=== PATIENT | female | born 1940 | race Caucasian/White ===

== ENCOUNTER → 2018-04-14 10:28 | Outpatient (CLI) | payer MEDICARE, SELFPAY ==
--- NOTE | 2018-04-14 10:30 | BI_ITS ---
MAMMOGRAPHY - BILATERAL SCREENING REASON FOR EXAM: Female, 77 years old. Routine annual screening examination. PERTINENT HISTORY: Non-contributory. TECHNIQUE: Digital bilateral breast rosette (3D mammographic acquisition) in the CC and MLO projections. 2-D mediolateral oblique (MLO) and craniocaudad (CC) views of both breasts were obtained. CAD: Full Field Digital Mammography with Computer Added Detection was performed. COMPARISON: Comparison is made with prior study dated March 30, 2017 and March 26, 2016. FINDINGS: Breast Composition: There are scattered areas of fibroglandular density. There are no dominant masses or suspicious calcifications. No other significant abnormalities are identified. There has been no significant change since the prior study. BI/SCREENING MAMM (CAD), BILAT IMPRESSION: Stable bilateral screening mammogram. Yearly follow-up mammogram recommended. (A) ASSESSMENT CATEGORY: BIRADS Category 1: Negative. A letter regarding these results will be sent to the patient by the facility within 30 days. Approximately 10% of breast cancers are not detected by mammography. A normal mammogram should not delay biopsy of a clinically suspicious abnormality. [id number] Electronically Signed: Osiel Meyer MD at 12:32 EDT Tel [phone], Service support ,
== END ==
PROVIDERS: Family Provider Family Medicine; PCP Family Medicine; Referring Provider Family Medicine; Visit Provider Family Medicine
DX: Z12.31 Encounter for screening mammogram for malignant neoplasm of breast (principal)
CPT/HCPCS: 77063; 77067

== ENCOUNTER → 2018-05-19 06:58 | Outpatient (CLI) | payer MEDICARE, SELFPAY ==
[2018-05-19 08:34] LABS: Vitamin B12 799 pg/mL (211-911)
[2018-05-19 08:36] LABS: Cholesterol 204 mg/dL (200); High Density Lipoprotein 47 mg/dL; T4 Free Direct 1.08 ng/dL (0.76-1.46); Thyroid Stim Hormone (TSH) 2.32 uIU/mL (0.358-3.74); Triglycerides 131 mg/dL; Very Low Density Lipoprotein 26 mg/dL (5-40)
== END ==
PROVIDERS: Family Provider Family Medicine; PCP Family Medicine; Referring Provider Family Medicine; Visit Provider Family Medicine
DX: E78.5 Hyperlipidemia, unspecified (principal); R53.82 Chronic fatigue, unspecified
CPT/HCPCS: 36415; 80061; 82607; 84439; 84443

== ENCOUNTER → 2018-09-16 09:17 | Outpatient (CLI) | payer MEDICARE, SELFPAY | PROVIDERS: Family Provider Family Medicine; PCP Family Medicine; Referring Provider Family Medicine; Visit Provider Family Medicine | DX: R19.7 Diarrhea, unspecified (principal) | CPT/HCPCS: 83630 ==

== ENCOUNTER → 2018-09-29 10:32 | Outpatient (CLI) | payer MEDICARE, SELFPAY ==
[2018-09-29 12:38] LABS: Absolute Lymphocyte Count 1.12 X10^3/ul (0.83-4.51); Absolute Neutrophil Count 3.9 X10^3/uL (2.0-7.7); Basophil# 0.02 X10^3/uL; Basophil% 0.3 % (0-1); Eosinophil# 0.07 X10^3/uL; Eosinophils% 1.2 % (0-5); Hematocrit 45.3 % (37-47); Lymphocyte # 1.12 X10^3/ul (4.0); Lymphocyte % 18.8 % (19-41); Mean Corp Hgb Conc 33.1 g/gl (32-36); Mean Corpuscular Hgb 30.8 pg (27.0-32.0); Mean Platelet Vol. 10.4 fl (6.2-12.0); Monocyte% 13.4 % (0-10); Neutrophil # 3.93 X10^3/uL (2.7-7.7); Platelet Count 260 K/mm3 (150-450); RBC Distribution Width CV 13.8 % (11.6-14.6); RBC Distribution Width SD 45.7 fl (35.1-43.9); Red Blood Count 4.87 M/mm3 (4.2-5.4)
[2018-09-29 12:42] LABS: POSITIVE COUNT NO; POSITIVE DIFFERENTIAL NO; POSITIVE MORPHOLOGY NO
[2018-09-29 12:55] LABS: Erythrocyte Sedimentation Rate 17 mm/hr (0-30)
[2018-09-29 12:58] LABS: CRP < 2.90 mg/L (0.0-3.0)
== END ==
PROVIDERS: Family Provider Family Medicine; PCP Family Medicine; Visit Provider Family Medicine
DX: R19.7 Diarrhea, unspecified (principal)
CPT/HCPCS: 36415; 85025; 85652; 86140

== ENCOUNTER → 2018-11-07 | Outpatient (CLI) | payer MEDICARE, SELFPAY ==
--- NOTE | 2018-11-07 08:22 | BD_ITS ---
STUDY: DUAL ENERGY X-RAY ABSORPTIOMETRY / DXA REASON FOR EXAM: Female, 78 years old. The patient is postmenopausal. Loss of height. TECHNIQUE: Bone Mineral Density (BMD) measurements of lumbar spine and left hip were obtained. COMPARISON: None. FINDINGS: Lumbar Spine (L1-L4): g/cm2 (0.960) / T-score (-2.0) / Z-score (-0.2) Findings are suggestive of osteopenia with a moderate fracture risk. Left Femur Total: g/cm2 (0.779) / T-score (-1.8) / Z-score (0.0) Left Femoral Neck: g/cm2 (0.896) / T-score (-1.0) / Z-score (1.0) BD/Dexa Bone Density Study IMPRESSION: The patient is considered osteopenic as outlined below according to World Jethro Organization (WHO) criteria with a moderate fracture risk. Reference Information: The T-score is the number of standard deviations above or below the standard which is normal for young adults at their peak bone mineral density. The World Health Organization (WHO) interprets the T-scores as follows: Above -1 Normal bone density Between -1 and -2.5 Osteopenia Equal to / or below -2.5 Osteoporosis As a practical clinical guideline, osteopenia may be graded as follows: Mild -1 through -1.5 Moderate -1.6 through -2.0 Severe -2.1 through -2.4 The Z-score is the number of standard deviations above or below age-matched controls. A Z-score of less than -1.5 would be considered abnormal. References: 1. NIH Osteoporosis and Related Bone Diseases http://www.osteo.org 2. International Society for Clinical Densitometry http://www.iscd.org 3. National Osteoporosis Foundation http://www.nof.org Electronically Signed: Osiel Meyer, at 9:36 EDT , Service support ,
== END | disposition home or self-care (01) ==
PROVIDERS: Family Provider Family Medicine; PCP Family Medicine; Referring Provider Family Medicine; Visit Provider Family Medicine
DX: M81.0 Age-related osteoporosis without current pathological fracture (principal); Z13.820 Encounter for screening for osteoporosis
CPT/HCPCS: 77080

== ENCOUNTER → 2018-11-14 | Outpatient (CLI) | payer MEDICARE, SELFPAY ==
[2018-11-14 17:52] LABS: Vitamin D,25 Hydroxy 19.9 ng/mL (29.95-100.01)
== END | disposition home or self-care (01) ==
LOC: BFHLAB 11:11
PROVIDERS: Family Provider Family Medicine; PCP Family Medicine; Visit Provider Family Medicine
DX: M85.80 Other specified disorders of bone density and structure, unspecified site (principal)
CPT/HCPCS: 36415; 82306

== ENCOUNTER 2018-11-29 07:26 | Day surgery (SDC) | payer MEDICARE, SELFPAY ==
[2018-11-16 09:39] VITALS: BMI 24.4
--- NOTE | 2018-11-16 10:01 | HP_ITS ---
Intake Vital Signs 11/16/18 Height 5 ft 5 in 11/16/18 Weight: 147 lb 11/16/18 Body Mass Index (BMI) 24.4 11/16/18 Blood Pressure 209/115 H 11/16/18 Blood Pressure Location Rt brachial 11/16/18 Blood Pressure Position Sitting 11/16/18 Respiratory Rate 18 Intake Visit Reasons: C-Scope Consult Core Carrier Required: No Is patient in pain?: No Allergies No Known Allergies Allergy (Verified 11/16/18 09:39) Medications Atenolol [Tenormin (beta ross)] 50 mg PO BID 08/01/14 [History Confirmed 11/16/18] Atorvastatin Calcium [Lipitor] 20 mg PO QHS 08/01/14 [History Confirmed 11/16/18] Calcium Citrate/Vitamin D3 [Hm Calcium Citrate-Vit D3 Tab] 1 ea PO DAILY 08/01/14 [History Confirmed 11/16/18] Indapamide 1.25 mg PO DAILY 08/01/14 [History Confirmed 11/16/18] Potassium Chloride [K-Dur] 20 meq PO BID 08/01/14 [History Confirmed 11/16/18] Aspirin E.C. [Ecotrin] 325 mg PO BIDCM #60 tab 08/14/14 [Rx Confirmed 11/16/18] turmeric root extract 500 mg capsule 500 mg PO DAILY 11/16/18 [History Confirmed 11/16/18] PFSH Medical History Diarrhea (Acute) High cholesterol (Acute) HTN (hypertension) (Chronic) Surgical History H/O cataract extraction (Acute) H/O right wrist surgery (Acute) Surgical complication involving right eye (Acute) right hip surgery (Acute) Family History Father Cancer Social History Smoking Status: Never smoker alcohol intake: never HPI HPI HPI: RADHA SAUCEDO, is a 78 F who presents to the office today for HPI HPI Surgical H&P: Yes HPI: RADHA SAUCEDO, is a 78 F who presents to the office today for evaluation for diarrhea. Patient states she has had diarrhea for about a month. Patient had been seeing her PCP did have stool cultures which were negative but she did have positive fecal leukocytes. Patient had tried probiotics, and antibiotic patient cannot remember the name however states she had stomach issues with that and she also tried budesonide which initially states that she thought she was better for the 5 days but when she tried more she knows there is no difference. Patient has been on turmeric and she has been taking that for about 5 days and states she has been having normal stools since then. Patient denies any blood in her stools with the diarrhea or with normal bowel movements. She currently does complain of some metallic taste in her mouth which she can also do not eat pizza sauce. Otherwise she denies other symptoms of reflux. Patient states father was diagnosed with stomach cancer at age 74, patient is never had an EGD. Patient denies any abdominal pain or any family history of colon cancer. Her last screening colonoscopy was in 2007 which was negative. ROS General General: No weight change, fatigue, colon cancer or breast cancer Cardio Cardiovascular: No chest pain Gastro Gastrointestinal: No abdominal pain, No nausea or vomiting, No diarrhea, No constipation, No blood in stool, No acid reflux, Yes hemorrhoids, No ulcers, No gallbladder problem, No black,tarry stools Exam Const General: cooperative, comfortable, no acute distress Resp Effort & Inspection: normal respiratory effort Cardio Rate: regular rate GI Inspection: non-distended Palpation: soft, no guarding, nontender Assessment & Plan Problems 1. Diarrhea R19.7 2. Metallic taste R43.8 3. Gastroesophageal reflux disease K21.9 4. FH: stomach cancer Z80.0 Plan I have discussed the above with the patient. I have offered the patient EGD and diagnostic colonoscopy for evaluation of diarrhea with random biopsies as well as EGD due to metallic taste which could be reflux into discussed with patient that tumor could make reflux worse. Family history of stomach cancer -father diagnosed at age 74 stomach cancer. I have explained the risks/benefits of the procedure and described the procedure. I have discussed the risks with the patient, including but not limited to: infection, bleeding, perforation of the GI tract requiring emergency surgery, inability to complete the procedure, injury to any internal organs, complications of anesthesia, etc. - the patient understands and agrees to proceed. I have answered all the patient's questions to the patient's satisfaction and the patient has no further questions. The patient has been given instructions for the colon cleansing preparation. One day of clears, MiraLAX Dulcolax split prep Martha Guerra M.D. Pager: [phone] [facility] [address] [place] [address], [facility], [address] [place], [place] [id number] Office: [phone] Plan Detail Follow Up We will schedule EGD and colonoscopy Coding Level of Care Code Off vis,est,level 3 Diagnoses Diarrhea R19.7 Metallic taste R43.8 Gastroesophageal reflux disease K21.9 FH: stomach cancer Z80.0 11/16/18 1001 <Electronically signed by Martha Guerra MD> Date Martha Guerra MD UPDATE: I have re-examined the patient. There are no clinical changes since date of exam.
[2018-11-29 08:05] VITALS: BP 173/79; PULSE 56; RESP 16; TEMP 36.8; O2SAT 100; BMI 24.1
--- NOTE | 2018-11-29 08:45 | EGD_PTH ---
PATIENT: RADHA SAUCEDO LOC: EN U#:[id number] AGE/SX: 78/F ROOM: RE11/29/[address]: Dr. Martha Guerra MD : 1940 BED: DIS: 11/29/2018 SPEC #: [id number] RECD: 11/29/18 12:25 STATUS: SHANNON MESERET #: [id number] RYAN: 11/29/18 08:[address]: Martha Guerra DEPT: SURGICAL PATHOLOGY RECD BY: Chapo Mckenzie ENTERED: 11/29/18 12:48 SP TYPE: EGD BIOPSY OTHR DR: Dr. Javier Chapin DO Tissues: A - Gastric mucous membrane B - Gastric mucous membrane C - Ileum, NOS D - Ileum, NOS E - Transverse colon F - Descending colon G - Sigmoid colon biopsy H - Rectum, NOS I - Rectum, NOS Procedures: Special Stain Group II Surgery Specimen Level IV Alcian Blue/PAS (control) HEADER OPERATION: Colonoscopy, EGD ([facility] [place]) PRE-OP DIAGNOSIS: Diarrhea TISSUE SUBMITTED: A - Antral biopsy for H. pylori, B - GE junction biopsy, C - Terminal ileum biopsy, D - Ileocecal valve biopsy, E - Transverse colon biopsy, F - Descending colon biopsy, G - Sigmoid biopsy, H - Rectum biopsy, I - Distal rectum biopsy MICROSCOPIC DIAGNOSIS A. Gastric antrum, biopsy: Mild to moderate chronic gastritis. See comment. B. Gastroesophageal junction, biopsy: Fragment of gastric mucosa with chronic inflammation, mild to moderate. See comment. C. Terminal ileum, biopsy: Prominent benign appearing lymphoid aggregates. No evidence of ileitis. D. Ileocecal valve, biopsy: Fragments of tubular adenoma. E. Transverse colon, biopsy: No pathologic diagnosis. F. Descending colon, biopsy: No pathologic diagnosis. G. Sigmoid colon, biopsy: No pathologic diagnosis. H. Rectum, biopsy: No significant pathologic change. I. Distal rectum, biopsy: Minimal nonspecific chronic inflammation. Focal ulceration with associated acute inflammation. AM:varsha 11/30/18 COMMENT A. The results of immunohistochemistry for Helicobacter pylori will be reported separately ([id number]). B. Squamous mucosa is not represented in the biopsy. Clinical correlation is suggested. There is no evidence of intestinal metaplasia. Alcian blue/PAS stain with matched control supports the above diagnosis. MICROSCOPIC DESCRIPTION Slides are reviewed. GROSS DESCRIPTION A - Received in fixative is one container labeled with the patient's name and designated antral biopsy. The specimen consists of two irregular fragments of light dick soft tissue that in aggregate measure 0.3 x 0.2 x 0.1 cm. The specimen is totally submitted in one cassette. B - Received in fixative is one container labeled with the patient's name and designated GE junction biopsy. The specimen consists of one irregular fragment of light dick soft tissue that measures 0.6 x 0.2 x 0.1 cm. The specimen is totally submitted in one cassette. C - Received in fixative is one container labeled with the patient's name and designated terminal ileum. The specimen consists of one irregular fragment of light dick soft tissue that measures 0.3 x 0.2 x 0.1 cm. The specimen is totally submitted in one cassette. D - Received in fixative is one container labeled with the patient's name and designated ileocecal valve biopsy. The specimen consists of two irregular fragments of light dick soft tissue that in aggregate measure 0.5 x 0.2 x 0.1 cm. The specimen is totally submitted in one cassette. E - Received in fixative is one container labeled with the patient's name and designated transverse colon biopsy. The specimen consists of one irregular fragment of light dick soft tissue that measures 0.3 x 0.3 x 0.1 cm. The specimen is totally submitted in one cassette. F - Received in fixative is one container labeled with the patient's name and designated descending colon biopsy. The specimen consists of two irregular fragments of light dick soft tissue that in aggregate measure 0.5 x 0.3 x 0.1 cm. The specimen is totally submitted in one cassette. G - Received in fixative is one container labeled with the patient's name and designated sigmoid biopsy. The specimen consists of one irregular fragment of light dick soft tissue that measures 0.7 x 0.2 x 0.1 cm. The specimen is totally submitted in one cassette. H - Received in fixative is one container labeled with the patient's name and designated rectum biopsy. The specimen consists of two irregular fragments of light dick soft tissue that in aggregate measure 0.6 x 0.3 x 0.1 cm. The specimen is totally submitted in one cassette. I - Received in fixative is one container labeled with the patient's name and designated distal rectal biopsy. The specimen consists of one irregular fragment of light dick soft tissue that measures 0.2 x 0.2 x 0.1 cm. The specimen is totally submitted in one cassette. / AM:varsha 11/29/18 TC:2 CPT: 35347 x9, 73724
--- NOTE | 2018-11-29 08:45 | IMM_PTH ---
PATIENT: RADHA SAUCEDO LOC: EN U#:[id number] AGE/SX: 78/F ROOM: RE11/29/[address]: Dr. Martha Guerra MD : 1940 BED: DIS: 11/29/2018 SPEC #: [id number] RECD: 11/29/18 15:03 STATUS: SHANNON REBoubacar #: [id number] RYAN: 11/29/18 08:[address]: Martha Guerra DEPT: IMMUNOHISTOCHEMISTRY RECD BY: Bre Degroot ENTERED: 11/29/18 15:03 SP TYPE: IMMUNO OTHR DR: Dr. Javier Chapin DO Tissues: A - Stomach, NOS Procedures: H Pylori (initial) PHYSICIAN & INSTITUTION [place] [id number] SPECIMEN INFORMATION: Tissue Source: A - Antral biopsy Clinical Info: Diarrhea Specimen Number: [id number] CPT code: 94975 METHODOLOGY: Deparaffinized sections of prefer/formalin-fixed tissue or PAP/DQ stained slides are incubated with monoclonal/polyclonal antibodies/oligonucleotide probes. Localization is made via biotin free immunoperoxidase method. Appropriate controls are performed and reacted as expected. Results on target cell population are indicated in the following table: RESULTS: ANTIBODY / CLONE RESULT Block A H Pylori (polyclonal) negative These tests were developed and their performance characteristics determined by [facility]. They may not have been cleared or approved by the U.S. Food and Drug Administration. The FDA has determined that such clearance or approval is not necessary. INTERPRETATION: A. Antral biopsy: Negative for Helicobacter pylori organisms. AM:varsha 11/30/18
[2018-11-29 09:22] VITALS: BP 115/65; BP 173/79; PULSE 78; RESP 16; TEMP 36.1; O2SAT 97
--- NOTE | 2018-11-29 09:22 | OP.ENDO_ITS ---
11/29/2018 Javier Chapin [address] [place] [address] Re : Upper GI endoscopy procedure for Yadira Palmira Dear Dr. Chapin This procedure was performed on Thursday, November 29, 2018. My impressions and recommendations are as follows: Impressions : - Z-line irregular, 37 cm from the incisors. Biopsied. - Normal examined duodenum. - Erythematous mucosa in the antrum. Biopsied. - The examination was otherwise normal. Recommendations : - Discharge patient to home. - Continue present medications. - Await pathology results. My findings are described in the full procedure note, which is enclosed. If I can be of further assistance, please feel free to contact me at Doctor phone number(s): , Work: . Sincerely, MD Martha Belcher MD 11/29/2018 9:22:44 AM This report has been signed electronically.
[2018-11-29 09:25] VITALS: BP 122/71; BP 173/79; PULSE 78; RESP 16; O2SAT 97
--- NOTE | 2018-11-29 09:29 | OP.ENDO_ITS ---
11/29/2018 Javier Chapin [address] [place] [address] Re : Colonoscopy procedure for [facility] Dear Dr. Chapin This procedure was performed on Thursday, November 29, 2018. My impressions and recommendations are as follows: Impressions : - Hemorrhoids found on perianal exam. - Localized mild inflammation was found at the ileocecal valve secondary to colitis. Biopsied. - The examined portion of the ileum was normal. Biopsied. - Erythematous mucosa in the rectum. Biopsied. - Erythematous mucosa in the distal rectum. Biopsied. - Biopsies were taken with a cold forceps for histology in the sigmoid colon, in the descending colon and in the transverse colon. Recommendations : - Discharge patient to home. - Continue present medications. - Await pathology results. - Repeat colonoscopy in 10 years for screening purposes. My findings are described in the full procedure note, which is enclosed. If I can be of further assistance, please feel free to contact me at Doctor phone number(s): , Work: . Sincerely, MD Martha Belcher MD 11/29/2018 9:29:29 AM This report has been signed electronically.
[2018-11-29 09:30] VITALS: BP 128/79; BP 173/79; PULSE 75; RESP 16; O2SAT 98
[2018-11-29 09:35] VITALS: BP 130/78; BP 173/79; PULSE 80; RESP 16; TEMP 36; O2SAT 98
[2018-11-29 09:51] VITALS: BP 173/79
== END 2018-11-29 10:19 | disposition home or self-care (01) ==
LOC: EN 07:27 → AC 07:28
PROVIDERS: Family Provider Family Medicine; PCP Family Medicine; Referring Provider Family Medicine; Visit Provider Surgery
PROC: 0DJD8ZZ Inspection of Lower Intestinal Tract, Via Natural or Artificial Opening Endoscopic (ICD-10-PCS; CPT 45378; principal; 2018-11-29 08:40)
DX: K29.50 Unspecified chronic gastritis without bleeding (principal); D12.0 Benign neoplasm of cecum; K51.20 Ulcerative (chronic) proctitis without complications; K64.9 Unspecified hemorrhoids; K21.9 Gastro-esophageal reflux disease without esophagitis; R43.8 Other disturbances of smell and taste; I10 Essential (primary) hypertension; E78.00 Pure hypercholesterolemia, unspecified; Z80.0 Family history of malignant neoplasm of digestive organs; Z79.82 Long term (current) use of aspirin; Z79.899 Other long term (current) drug therapy
CPT/HCPCS: 43239; 45380; 88305; 88313; 88342; J7120; J2405

== ENCOUNTER → 2019-04-25 | Outpatient (CLI) | payer MEDICARE, SELFPAY ==
--- NOTE | 2019-04-25 12:33 | BI_ITS ---
BILATERAL DIGITAL MAMMOGRAM WITH TOMOSYNTHESIS: Mediolateraloblique and craniocaudal views demonstrate no evidence of dominant parenchymal masses. No cluster of microcalcifications or architectural distortion is seen. No evidence of skin thickening is identified. There has been no significant change since 04/14/2018. Breast Density: The breast tissue is almost entirely fatty. CAD was used to assist in final assessment. IMPRESSION: NORMAL MAMMOGRAM BILATERALLY. ASSESSMENT CATEGORY: BIRADS Category 1: Negative. A letter regarding these results will be sent to the patient by the facility within 30 days. FOLLOW UP RECOMMENDATION: Yearly follow up mammogram recommended. (A) Approximately 10% of breast cancers are not detected by mammography. A normal mammogram should not delay biopsy of a clinically suspicious abnormality. Electronically Signed: Remy Rosario, at 18:00 EDT Tel , Service support , BI/SCREEN MAMM (CAD) W/LADONNA BUSTILLOS
== END | disposition home or self-care (01) ==
LOC: OPBI 12:30
PROVIDERS: Family Provider Family Medicine; PCP Family Medicine; Referring Provider Family Medicine; Visit Provider Family Medicine
DX: Z12.31 Encounter for screening mammogram for malignant neoplasm of breast (principal)
CPT/HCPCS: 77063; 77067

== ENCOUNTER → 2020-04-28 | Outpatient (CLI) | payer MEDICARE, SELFPAY ==
--- NOTE | 2020-04-28 07:57 | BI_ITS ---
MAMMOGRAPHY - BILATERAL SCREENING REASON FOR EXAM: Female, 79 years old. Routine annual screening examination. PERTINENT HISTORY: Non-contributory. TECHNIQUE: Digital bilateral breast ladonna (3D mammographic acquisition) in the CC and MLO projections. 2-D mediolateral oblique (MLO) and craniocaudad (CC) views of both breasts were obtained. CAD: Full Field Digital Mammography with Computer Added Detection was performed. COMPARISON: Comparison is made with prior examination dated 04/25/2019 and 04/14/2008. FINDINGS: Breast Composition: The breasts are almost entirely fatty. There are no dominant masses or suspicious calcifications. No other significant abnormalities are identified. There has been no significant change since the prior study. BI/SCREEN MAMM (CAD) W/LADONNA BILAT IMPRESSION: Stable bilateral screening mammogram. Yearly follow-up mammogram recommended. (A) ASSESSMENT CATEGORY: BIRADS Category 1: Negative. A letter regarding these results will be sent to the patient by the facility within 30 days. Approximately 10% of breast cancers are not detected by mammography. A normal mammogram should not delay biopsy of a clinically suspicious abnormality. [id number] Electronically Signed: Osiel Meyer, at 8:46 EDT , Service support ,
== END | disposition home or self-care (01) ==
LOC: OPBI 07:55
PROVIDERS: PCP Family Medicine; Referring Provider Family Medicine; Visit Provider Family Medicine
DX: Z12.31 Encounter for screening mammogram for malignant neoplasm of breast (principal)
CPT/HCPCS: 77063; 77067

== ENCOUNTER → 2021-05-01 10:50 | Outpatient (CLI) | payer MEDICARE, SELFPAY ==
--- NOTE | 2021-05-01 10:52 | BI_ITS ---
MAMMOGRAPHY - BILATERAL SCREENING REASON FOR EXAM: Female, 80 years old. Routine annual screening examination. PERTINENT HISTORY: Non-contributory. TECHNIQUE: Digital bilateral breast ladonna (3D mammographic acquisition) in the CC and MLO projections. 2-D mediolateral oblique (MLO) and craniocaudad (CC) views of both breasts were obtained. CAD: Full Field Digital Mammography with Computer Added Detection was performed. COMPARISON: Comparison is made with prior examination dated 04/28/2020 and 04/25/2019. FINDINGS: Breast Composition: The breasts are almost entirely fatty. There are no dominant masses or suspicious calcifications. Stable small benign-appearing bilateral axillary lymph nodes. No other significant abnormalities are identified. There has been no significant change since the prior study. BI/SCRN MAMM (CAD)W/LADONNA BILAT IMPRESSION: Stable bilateral screening mammogram. Yearly follow-up mammogram recommended. (A) ASSESSMENT CATEGORY: BIRADS Category 2: Benign. A letter regarding these results will be sent to the patient by the facility within 30 days. Approximately 10% of breast cancers are not detected by mammography. A normal mammogram should not delay biopsy of a clinically suspicious abnormality. [id number] Electronically Signed: Osiel Meyer MD at 12:22 EDT , Service support ,
== END ==
PROVIDERS: PCP Family Medicine; Referring Provider Family Medicine; Visit Provider Family Medicine
DX: Z12.31 Encounter for screening mammogram for malignant neoplasm of breast (principal)
CPT/HCPCS: 77063; 77067

== ENCOUNTER → 2022-02-09 | Outpatient (CLI) | payer MEDICARE, SELFPAY ==
--- NOTE | 2022-02-09 08:42 | RAD_ITS ---
STUDY: X-RAY - LEFT KNEE REASON FOR EXAM: Female, 81 years old. Pain. TECHNIQUE: 4 view(s) of the knee. COMPARISON: None. FINDINGS: Osteopenia. Large superior patellar spur. Mild medial and lateral compartmental arthrosis without osteophytes. Mild arthrosis of the patellofemoral compartment. Vascular calcification. RAD/Knee 4 or More Views IMPRESSION: Osteopenia with mild tricompartmental arthrosis. No acute abnormality or erosive changes. Electronically Signed: Francis Rojas MD at 9:57 EDT ,
--- NOTE | 2022-02-09 08:42 | RAD_ITS ---
STUDY: X-RAY - PELVIS AND LEFT HIP REASON FOR EXAM: Female, 81 years old. Chronic pain. No injury. TECHNIQUE: 3 views of the pelvis and hip. COMPARISON: 08/12/2014. FINDINGS: There is a non-specific bowel gas pattern. Normal visualized soft tissue structures. Osteopenia. Normal sacroiliac joints and symphysis pubis. No abnormality of the visual right total hip arthroplasty. Marked arthrosis of the left hip which has progressed since the prior study. 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 Moderate arthrosis of the left hip which has progressed since the prior study. Electronically Signed: Francis Rojas MD at 9:59 EDT ,
[2022-02-09 09:17] LABS: Absolute Lymphocyte Count 1.58 X10^3/uL (0.83-4.51); Absolute Neutrophil Count 3.6 X10^3/uL (2.0-7.7); Basophil# 0.05 X10^3/uL; Basophil% 0.8 % (0-1); Eosinophil# 0.14 X10^3/uL; Eosinophils% 2.3 % (0-5); Hematocrit 45.1 % (37-47); Hemoglobin 15.5 g/dL (12.0-15.0); Lymphocyte # 1.58 X10^3/ul (0.83-4.51); Lymphocyte % 26.5 % (19-41); Mean Corp Hgb Conc 34.4 g/dL (32-36); Mean Corpuscular Hgb 32.2 pg (27.0-32.0); Mean Corpuscular Volume 93.8 fL (81-99); Mean Platelet Vol. 10.2 fl (6.2-12.0); Monocyte# 0.63 X10^3/uL; Monocyte% 10.6 % (0-10); NRBC Flagged by Analyzer 0 % (0-5); Neutrophil # 3.55 X10^3/uL (2.7-7.7); Neutrophil % 59.5 % (47-70); Platelet Count 232 K/mm3 (150-450); RBC Distribution Width CV 13.5 % (11.6-14.6); RBC Distribution Width SD 46.4 fl (35.1-43.9); Red Blood Count 4.81 M/mm3 (4.2-5.4)
[2022-02-09 09:53] LABS: ALB/GLOB Ratio 1.1 RATIO (0.9-2.4); AST(SGOT) 19 U/L (15-37); Alanine Aminotransfer ALT/SGPT 21 U/L (13-56); Albumin, Serum 3.9 g/dL (3.2-5.0); Alkaline Phosphatase 98 U/L (45-117); Anion Gap 7 (5-15); BUN 11 mg/dL (7-18); BUN/Creat Ratio 15.3 RATIO (10-20); Calcium,Total 9.2 mg/dL (8.5-10.1); Chloride 105 mmol/L (98-107); Cholesterol 127 mg/dL (200); Creatinine, Serum 0.72 mg/dL (0.55-1.02); EST Glomerular Filtration Rate 83 mL/min (>60); Est Glom Filt Rate - Afr Amer 101 mL/min (>60); Globulin 3.5 g/dL (2.2-4.2); Glucose 108 mg/dL (74-106); High Density Lipoprotein 43 mg/dL; Potassium 3.1 mmol/L (3.5-5.1); Protein, Total 7.4 g/dL (6.4-8.2); Sodium Level 140 mmol/L (136-145); Triglycerides 150 mg/dL; Very Low Density Lipoprotein 30 mg/dL (5-40)
[2022-02-09 10:00] LABS: Vitamin D,25 Hydroxy 58.8 ng/mL
== END | disposition home or self-care (01) ==
PROVIDERS: PCP Family Medicine; Referring Provider Family Medicine; Visit Provider Family Medicine
DX: I10 Essential (primary) hypertension (principal); E78.5 Hyperlipidemia, unspecified; E55.9 Vitamin D deficiency, unspecified; M25.562 Pain in left knee; M25.552 Pain in left hip
CPT/HCPCS: 36415; 73502; 73564; 80053; 80061; 82306; 85025

== ENCOUNTER → 2022-05-03 | Outpatient (CLI) | payer MEDICARE, SELFPAY ==
--- NOTE | 2022-05-03 12:50 | BI_ITS ---
MAMMOGRAPHY - BILATERAL SCREENING REASON FOR EXAM: Female, 81 years old. Routine annual screening examination. PERTINENT HISTORY: Non-contributory. TECHNIQUE: Digital bilateral breast ladonna (3D mammographic acquisition) in the CC and MLO projections. 2-D mediolateral oblique (MLO) and craniocaudad (CC) views of both breasts were obtained. CAD: Full Field Digital Mammography with Computer Added Detection was performed. COMPARISON: Comparison is made with prior study 05/01/2021 and 04/28/2020. FINDINGS: Breast Composition: The breasts are almost entirely fatty. There are no dominant masses or suspicious calcifications. Stable small benign-appearing bilateral axillary lymph nodes. Stable 2 mm well-defined nodule in the deep upper lateral aspect of the left breast. This may represent either a small cyst or tiny lymph node. No other significant abnormalities are identified. There has been no significant change since the prior study. BI/SCRN MAMM (CAD)W/LADONNA BILAT IMPRESSION: Stable bilateral screening mammogram. Yearly follow-up mammogram recommended. (A) ASSESSMENT CATEGORY: BIRADS Category 2: Benign. A letter regarding these results will be sent to the patient by the facility within 30 days. Approximately 10% of breast cancers are not detected by mammography. A normal mammogram should not delay biopsy of a clinically suspicious abnormality. [id number] Electronically Signed: Osiel Meyer MD at 13:41 EDT ,
== END | disposition home or self-care (01) ==
LOC: OPBI 12:48
PROVIDERS: PCP Family Medicine; Visit Provider Family Medicine
DX: Z12.31 Encounter for screening mammogram for malignant neoplasm of breast (principal)
CPT/HCPCS: 77063; 77067

== ENCOUNTER → 2023-01-12 | Outpatient (CLI) | payer MEDICARE, SELFPAY ==
--- NOTE | 2023-01-12 08:30 | RAD_ITS ---
INDICATION: LOW BACK PAIN EXAMINATION/TECHNIQUE: X-RAY - XR Spine Lumbar Min 4 Views COMPARISON: No prior examinations are available for comparison. FINDINGS: VERTEBRAE: Preserved vertebral body height. No evidence of acute compression fracture deformity. No spondylolisthesis. Increased kyphosis of the thoracolumbar junction. No substantial scoliosis. No significant facet arthropathy. DISCS: Severe disc space narrowing of L2-L3 and L4-L5 and to a lesser extent of L1-L2. Endplate spondylosis and anterior degenerative osteophyte formations at multiple levels. INCLUDED ABDOMEN: Atherosclerotic calcifications of the abdominal aorta. RAD/L/S Spine Min 4 Views IMPRESSION: Degenerative changes of the lumbar spine as described above. Electronically Signed: Will Mcwilliams MD at 11:43 EDT ,
== END | disposition home or self-care (01) ==
LOC: RAD 08:22
PROVIDERS: PCP Family Medicine; Referring Provider Family Medicine; Visit Provider Family Medicine
DX: M54.50 Low back pain, unspecified (principal)
CPT/HCPCS: 72110

== ENCOUNTER → 2023-02-14 | Outpatient (CLI) | payer MEDICARE, SELFPAY ==
[2023-02-14 12:33] LABS: Absolute Lymphocyte Count 1.41 X10^3/uL (0.83-4.51); Absolute Neutrophil Count 3.6 X10^3/uL (2.0-7.7); Basophil# 0.05 X10^3/uL; Basophil% 0.9 % (0-1); Eosinophil# 0.17 X10^3/uL; Eosinophils% 2.9 % (0-5); Hematocrit 45.3 % (37-47); Hemoglobin 14.6 g/dL (12.0-15.0); Lymphocyte # 1.41 X10^3/ul (0.83-4.51); Lymphocyte % 24.3 % (19-41); Mean Corp Hgb Conc 32.2 g/dL (32-36); Mean Corpuscular Hgb 31.8 pg (27.0-32.0); Mean Corpuscular Volume 98.7 fL (81-99); Mean Platelet Vol. 10.6 fl (6.2-12.0); Monocyte# 0.59 X10^3/uL; Monocyte% 10.2 % (0-10); NRBC Flagged by Analyzer 0 % (0-5); Neutrophil # 3.57 X10^3/uL (2.7-7.7); Neutrophil % 61.4 % (47-70); Platelet Count 243 K/mm3 (150-450); RBC Distribution Width CV 13.3 % (11.6-14.6); RBC Distribution Width SD 48.3 fl (35.1-43.9); Red Blood Count 4.59 M/mm3 (4.2-5.4); White Blood Count 5.8 K/mm3 (4.4-11.0)
[2023-02-14 12:56] LABS: Vitamin D,25 Hydroxy 52.3 ng/mL
[2023-02-14 14:04] LABS: ALB/GLOB Ratio 1.1 RATIO (0.9-2.4); AST(SGOT) 25 U/L (15-37); Alanine Aminotransfer ALT/SGPT 23 U/L (13-56); Albumin, Serum 3.8 g/dL (3.2-5.0); Alkaline Phosphatase 104 U/L (45-117); Anion Gap 7 (5-15); BUN 10 mg/dL (7-18); Calcium,Total 9.7 mg/dL (8.5-10.1); Chloride 106 mmol/L (98-107); Cholesterol 122 mg/dL (200); Creatinine, Serum 0.71 mg/dL (0.55-1.02); EST Glomerular Filtration Rate 83 mL/min (>60); Est Glom Filt Rate - Afr Amer 101 mL/min (>60); Globulin 3.6 g/dL (2.2-4.2); Glucose 107 mg/dL (74-106); High Density Lipoprotein 48 mg/dL; Potassium 4.5 mmol/L (3.5-5.1); Protein, Total 7.4 g/dL (6.4-8.2); Sodium Level 140 mmol/L (136-145); Triglycerides 116 mg/dL; Very Low Density Lipoprotein 23 mg/dL (5-40)
== END | disposition home or self-care (01) ==
LOC: BFHLAB 09:33
PROVIDERS: PCP Family Medicine; Referring Provider Family Medicine; Visit Provider Family Medicine
DX: I10 Essential (primary) hypertension (principal); E78.5 Hyperlipidemia, unspecified; M85.80 Other specified disorders of bone density and structure, unspecified site; E55.9 Vitamin D deficiency, unspecified
CPT/HCPCS: 36415; 80053; 80061; 82306; 85025

== ENCOUNTER → 2023-05-04 | Outpatient (CLI) | payer MEDICARE, SELFPAY ==
--- NOTE | 2023-05-04 09:38 | BD_ITS ---
STUDY: DUAL ENERGY X-RAY ABSORPTIOMETRY / DXA REASON FOR EXAM: Female, 82 years old. [id number] TECHNIQUE: Bone Mineral Density (BMD) measurements of lumbar spine and left forearm were obtained. COMPARISON: Comparison is made with prior study dated November 07, 2018. FINDINGS: Lumbar Spine (L1-L4): g/cm2 (0.880) / T-score (-1.6) / Z-score (1.2) Findings are suggestive of osteopenia with a moderate fracture risk. Right Forearm: g/cm2 (0.569) / T-score (-0.2) / Z-score (3.0) The T-Scores on the most recent prior examination were: Lumbar Spine (L1-L4): There has been improvement of bone density since the previous examination. BD/Dexa Bone Density Study IMPRESSION: The patient is considered osteopenic as outlined below according to World Jethro Organization (WHO) criteria with a moderate fracture risk. There has been improvement of bone density since the previous examination. Reference Information: The T-score is the number of standard deviations above or below the standard which is normal for young adults at their peak bone mineral density. The World Health Organization (WHO) interprets the T-scores as follows: Above -1 Normal bone density Between -1 and -2.5 Osteopenia Equal to / or below -2.5 Osteoporosis As a practical clinical guideline, osteopenia may be graded as follows: Mild -1 through -1.5 Moderate -1.6 through -2.0 Severe -2.1 through -2.4 The Z-score is the number of standard deviations above or below age-matched controls. A Z-score of less than -1.5 would be considered abnormal. References: 1. NIH Osteoporosis and Related Bone Diseases www osteo.org 2. International Society for Clinical Densitometry www iscd.org 3. National Osteoporosis Foundation www nof.org Electronically Signed: Osiel Meyer MD at 11:55 EDT ,
--- NOTE | 2023-05-04 09:39 | BI_ITS ---
MAMMOGRAPHY - BILATERAL SCREENING 3-D TOMOSYNTHESIS REASON FOR EXAM: Female, 82 years old. SCREENING PERTINENT HISTORY: No significant family history. TECHNIQUE: 2-D mammograms and 3-D Tomosynthesis of the breast (s) were performed. CAD was performed. COMPARISON: 05/03/2022 FINDINGS: The breast composition is composed of scattered fibroglandular density. Scattered benign calcifications are seen. No dense spiculated masses or suspicious microcalcifications are identified. No architectural distortion is identified. There is no skin thickening or retraction. There has been no significant change since the prior study. BI/SCRN MAMM (CAD)W/LADONNA BILAT IMPRESSION: No mammographic signs of malignancy. Routine yearly mammograms recommended. ASSESSMENT CATEGORY: BIRADS Category 1: Negative. A letter regarding these results will be sent to the patient by the facility within 30 days. FOLLOW UP RECOMMENDATION: Yearly follow up mammogram recommended. (A) Approximately 10% of breast cancers are not detected by mammography. A normal mammogram should not delay biopsy of a clinically suspicious abnormality. Electronically Signed: Nadir Terrazas MD at 12:57 EDT ,
== END | disposition home or self-care (01) ==
LOC: OPBD 09:36
PROVIDERS: PCP Family Medicine; Referring Provider Family Medicine; Visit Provider Family Medicine
DX: Z12.31 Encounter for screening mammogram for malignant neoplasm of breast (principal); M81.0 Age-related osteoporosis without current pathological fracture
CPT/HCPCS: 77063; 77067; 77080

== ENCOUNTER → 2024-03-16 | Outpatient (CLI) | payer MEDICARE, SELFPAY ==
[2024-03-16 17:39] LABS: Absolute Lymphocyte Count 1.26 X10^3/uL (0.83-4.51); Absolute Neutrophil Count 4.8 X10^3/uL (2.0-7.7); Basophil# 0.04 X10^3/uL; Basophil% 0.6 % (0-1); Eosinophil# 0.06 X10^3/uL; Eosinophils% 0.9 % (0-5); Hematocrit 43.5 % (37-47); Hemoglobin 14.3 g/dL (12.0-15.0); Lymphocyte # 1.26 X10^3/ul (0.83-4.51); Lymphocyte % 18.5 % (19-41); Mean Corp Hgb Conc 32.9 g/dL (32-36); Mean Corpuscular Volume 94.4 fL (81-99); Mean Platelet Vol. 10.7 fl (6.2-12.0); Monocyte% 8.8 % (0-10); NRBC Flagged by Analyzer 0 % (0-5); Neutrophil # 4.82 X10^3/uL (2.7-7.7); Neutrophil % 70.8 % (47-70); Platelet Count 249 K/mm3 (150-450); RBC Distribution Width CV 13.5 % (11.6-14.6); RBC Distribution Width SD 46.5 fl (35.1-43.9); Red Blood Count 4.61 M/mm3 (4.2-5.4); White Blood Count 6.8 K/mm3 (4.4-11.0)
[2024-03-16 18:05] LABS: Vitamin D,25 Hydroxy 81.7 ng/mL
[2024-03-16 18:15] LABS: ALB/GLOB Ratio 1.1 RATIO (0.9-2.4); AST(SGOT) 27 U/L (15-37); Alanine Aminotransfer ALT/SGPT 19 U/L (13-56); Albumin, Serum 3.9 g/dL (3.2-5.0); Alkaline Phosphatase 85 U/L (45-117); Anion Gap 8 (5-15); BUN 9 mg/dL (7-18); BUN/Creat Ratio 12.9 RATIO (10-20); Calcium,Total 9.7 mg/dL (8.5-10.1); Chloride 103 mmol/L (98-107); Cholesterol 142 mg/dL (200); EST Glomerular Filtration Rate 86 mL/min (>60); Est Glom Filt Rate - Afr Amer 104 mL/min (>60); Globulin 3.4 g/dL (2.2-4.2); Glucose 104 mg/dL (74-106); High Density Lipoprotein 59 mg/dL; Potassium 3.9 mmol/L (3.5-5.1); Protein, Total 7.3 g/dL (6.4-8.2); Sodium Level 134 mmol/L (136-145); Triglycerides 114 mg/dL; Very Low Density Lipoprotein 23 mg/dL (5-40)
== END | disposition home or self-care (01) ==
LOC: BFHLAB 14:32
PROVIDERS: PCP Family Medicine; Referring Provider Family Medicine; Visit Provider Family Medicine
DX: I10 Essential (primary) hypertension (principal); E78.5 Hyperlipidemia, unspecified; E55.9 Vitamin D deficiency, unspecified
CPT/HCPCS: 36415; 80053; 80061; 82306; 85025

== ENCOUNTER → 2024-03-23 | Outpatient (CLI) | payer MEDICARE, SELFPAY ==
--- NOTE | 2024-03-23 07:19 | CT_ITS ---
STUDY: CT BRAIN WITHOUT CONTRAST REASON FOR EXAM: Female, 83 years old. UNSPECIFIED ABNORMALITIES OF GAIT AND MOBILITY RADIATION DOSAGE (If Supplied By Facility): CTDIvol = ( 44.99 ) mGy, DLP = ( 796.11 ) mGycm TECHNIQUE: Transaxial CT imaging of the brain was performed without administration of intravenous contrast material. Individualized dose optimization techniques were used for this CT. COMPARISON: No relevant priors. FINDINGS: Normal soft tissue structures. There is hyperostosis frontalis internus. There is mild cerebral atrophy with widening of the extra-axial spaces and ventricular dilatation. There are areas of decreased attenuation within the white matter tracts of the supratentorial brain, consistent with microvascular disease changes. Normal basal ganglia and thalami. Normal brainstem. Normal cerebellum. There is no intracranial hemorrhage. There are no findings of an acute ischemic infarction. Atherosclerotic calcific plaques of the cavernous portions of the internal carotid arteries bilaterally. Normal visualized paranasal sinuses. CT/Brain/Head without Contrast IMPRESSION: Chronic involutional changes of the brain. Electronically Signed: Osiel Meyer MD at 11:57 EDT ,
== END | disposition home or self-care (01) ==
PROVIDERS: PCP Family Medicine; Referring Provider Family Medicine; Visit Provider Family Medicine
DX: R42 Dizziness and giddiness (principal); R26.9 Unspecified abnormalities of gait and mobility; R51.9 Headache, unspecified
CPT/HCPCS: 70450

== ENCOUNTER → 2024-05-07 | Outpatient (CLI) | payer MEDICARE, SELFPAY ==
--- NOTE | 2024-05-07 07:07 | BI_ITS ---
MAMMOGRAPHY - BILATERAL SCREENING REASON FOR EXAM: Female, 83 years old. Routine annual screening examination. PERTINENT HISTORY: Non-contributory. TECHNIQUE: Digital bilateral breast ladonna (3D mammographic acquisition) in the CC and MLO projections. 2-D mediolateral oblique (MLO) and craniocaudad (CC) views of both breasts were obtained. CAD: Full Field Digital Mammography with Computer Added Detection was performed. COMPARISON: Comparison is made with prior study May 04, 2023 and May 03, 2022. FINDINGS: Breast Composition: There are scattered areas of fibroglandular density. There are no dominant masses or suspicious calcifications. No other significant abnormalities are identified. There has been no significant change since the prior study. BI/SCRN MAMM (CAD)W/LADONNA BILAT IMPRESSION: Stable bilateral screening mammogram. Yearly follow-up mammogram recommended. (A) ASSESSMENT CATEGORY: BIRADS Category 1: Negative. A letter regarding these results will be sent to the patient by the facility within 30 days. Approximately 10% of breast cancers are not detected by mammography. A normal mammogram should not delay biopsy of a clinically suspicious abnormality. [id number] Electronically Signed: Osiel Meyer MD at 10:59 EDT ,
--- OUTSIDE RECORDS SUMMARY | 2024-05-07 07:08 | XMS RPT_ITS | CCD ---
Author Organization [facility] Care Team Providers Care Rescue Worker Name Role Phone CarranzaElijah Primary Care Provider UnaHui Smith Unavailable SARKIS , DR HUI Lopez Primary Care Physician [phone] Hannah Gordon PT Unavailable Unavailable [facility] DR HUI CLEMENTS Primary Care Physician SUSAN THURMAN DO Attending Unavailable [facility] , DR HUI Lopez Primary Care Unavailab le Allergies Allergy Classification Reported Allergen(s) Allergy Type Date of Onset Reaction(s) Facility (5 sources) Penicillin; Translations: [penicillin] Drug Allergy ABDOMINAL PAIN [facility] (3 sources) Amoxicillin; Translations: [amoxicillin] Drug Allergy Abdominal pain [facility] Medications Current Medications Medication Drug Class(es) Dates Sig (Normalized) Sig (Original) acetaminophen 500 mg oral tablet (1 source) Start: 12-15-2022 End: 12-25-2022 acetaminophen 500 mg oral tablet Dose : 1,000 mg = 2 tab(s), Oral, q4h, PRN as needed for pain, # 100 tab(s), 0 Refill(s), 12/25/22 12:52:00 EDT, Pharmacy: [facility] #[id number], 165.1, cm, 12/14/22 15:12:00 EDT, Height Start Date: 12/15/22 Stop Date: 12/25/22 Status: Ordered atorvastatin 20 mg oral tablet (5 sources) HMG-CoA Reductase Inhibitor Start: 08-07-2019 atorvastatin 20 mg oral tablet Dose : 20 mg = 1 tab(s), Oral, qDay, 0 Refill(s) Start Date: 08/07/19 Status: Ordered calcium citrate 1500 mg / cholecalciferol 250 unt oral tablet (5 sources) Vitamin D Start: 08-07-2019 take 1 tablet by mouth twice daily calcium (as citrate)-vitamin D 315 mg-250 intl units (6. 25 mcg) oral tablet Dose = 2 tab(s), Oral, BID, # 120 tab(s), 0 Refill(s) Start Date: 08/07/19 Status: Ordered Start: 08-07-2019 take 1 tablet by christopher th twice daily calcium (as citrate)-vitamin D 315 mg-250 intl units (6. 25 mcg) oral tablet Dose = 2 tab(s), Oral, BID, # 120 tab(s), 0 Refill(s) Start Date: 08/07/19 Status: Ordered docusate sodium 50 mg / sennosides, [facility] 8.6 mg oral tablet (1 source) Start: 12-15-2022 End: 12-18-2022 take 1 tablet by mouth twice daily Senokot S 50 mg-8.6 mg oral tablet Dose = 2 tab(s), Oral, BID, Take until first bowel movement, then as needed, X 3 day(s), # 12 tab(s), 0 Refill(s), Pharmacy: [facility] #[id number], 165.1, cm, 12/14/22 15:12:00 EDT, Height Start Date: 12/15/22 Stop Date: 12/18/22 Status: Ordered famotidine 20 mg oral tablet (2 sources) Histamine-2 Receptor Antagonist Start: 12-15-2022 Pepcid 20 mg oral tablet Dose : 20 mg = 1 tab(s), Oral, qDay, # 30 tab(s), 0 Refill(s), Pharmacy: [facility] #[id number], 165.1, cm, 12/14/22 15:12:00 EDT, Height Start Date: 12/15/22 Status: Ordered indapamide 1.25 mg oral tablet (5 sources) Thiazide-like Diuretic Start: 08-07-2019 indapamide 1.25 mg oral tablet Dose : 1.25 mg = 1 tab(s), Oral, qDay, 0 Refill(s) Start Date: 08/07/19 Status: Ordered irbesartan 150 mg oral tablet (3 sources) Angiotensin 2 Receptor Maty Start: 11-15-2022 irbesartan 150 mg oral tablet Dose : 150 mg = 1 tab(s), Oral, Daily, 0 Refill(s) Start Date: 11/15/22 Status: Ordered meloxicam 7.5 mg oral tablet (4 sources) Nonsteroidal Anti-inflammatory Drug Start: 12-15-2022 Mobic 7.5 mg oral tablet Dose : 7.5 mg = 1 tab(s), Oral, BIDM, # 60 tab(s), 0 Refill(s), Pharmacy: [facility] #[id number], 165.1, cm, 12/14/22 15:12:00 EDT, Height Start Date: 12/15/22 Status: Ordered Start: 08-15-2019 meloxicam 15 m g oral tablet Dose : 15 mg = 1 tab(s), Oral, qDay, # 30 tab(s), 0 Refill(s) Start Date: 08/15/19 Status: Ordered potassium chloride 20 meq or al tablet (5 sources) Start: 08-07-2019 potassium chlo ride 20 mEq oral tablet, extended release Dose : 20 mEq = 1 tab(s), Oral, BID, 0 Refill(s) Start Date: 08/07/19 Status: Ordered Vitamin D3 (5 sources) Start: 08-07-2019 Vitamin D3 Dos e : 2,000 unit(s) = 1 tab(s), Oral, Daily, 0 Refill(s) Start Date: 08/07/19 Status: Ordered Completed/Discontinued Medications Medication Drug Class(es) Dates Sig (Normalized) Sig (Original) aspirin 81 mg delayed release oral tablet (4 sources) Platelet Aggregation Inhibitor, Nonsteroidal Anti-inflammatory Drug Start: 12-15-2022 End: 01-14-2023 aspirin 81 mg oral delayed release tablet Dose : 81 mg = 1 tab(s), Oral, BID, Take for 4 weeks post-operatively for DVT prophylaxis, # 60 tab(s), 0 Refill(s), [facility]acy: [facility] #[id number], 165.1, cm, 12/14/22 15:12:00 EDT, Height Start Date: 12/15/22 Stop Date: 01/14/23 Status: Ordered Start: 08-15-2019 take 1 tablet by christopher once daily [facility] Aspirin 325 mg oral tablet Dose : 325 mg = 1 tab(s), Oral, qDay, Aspirin 325 mg once daily for 2 weeks postoperatively, 0 Refill(s) Start Date: 08/15/19 Status: Ordered Atenolol (6 sources) beta-Adrenergic Maty Start: 12-15-2022 End: 12-15-2022 atenolol Start: 12/15/22 9:00:00 EDT, Dose = 50 mg, = 1 tab(s), Oral, 12/14/22 15:44:00 EDT Start Date: 12/15/22 Stop Date: 12/15/22 Status: Completed Start: 08-07-2019 atenolol 50 mg oral tablet Dose : 50 mg = 1 tab(s), Oral, qDay, 0 Refill(s) Start Date: 08/07/19 Status: Ordered fluticasone propionate 0.05 mg/actuat metered dose nasal spray (2 sources) Corticosteroid Start: 12-15-2022 End: 12-25-2022 take 1 dose nasal route once daily in the morning Flonase 50 mcg/inh nasal spray Dose = 2 spray(s), Nostril, each, qAM, # 16 gram(s), 0 Refill(s), Pharmacy: [facility] #[id number], 165.1, cm, 12/14/22 15:12:00 EDT, Height Start Date: 12/15/22 Stop Date: 12/25/22 Status: Ordered predniSONE 10 mg oral tablet (2 sources) Start: 12-15-2022 End: 12-22-2022 predniSONE 10 mg oral tablet Dose : 60 mg = 6 tab(s), Oral, qDay, # 42 tab(s), 0 Refill(s), Pharmacy: [facility] #[id number], 165.1, cm, 12/14/22 15:12:00 EDT, Height Start Date: 12/15/22 Stop Date: 12/22/22 Status: Ordered Problems Problem Classification Problem Date Documented Date Episodic/Chronic Disorders of lipid metabolism (1 source) Hyperlipidemia; Translations: [Hyperlipidemia, unspecified] Onset: 12-15-2022 Chronic Essential hypertension (7 sources) Essential hypertension; Translations: [Essential (primary) hypertension] Onset: 12-15-2022 09-01-2007 Chronic Osteoarthritis (2 sources) Osteoarthritis of knee; Translations: [Unilateral primary osteoarthritis, left knee] Onset: 12-15-2022 Chronic Other and unspecified benign neoplasm (1 source) Tubular adenoma ; Translations: [Benign neoplasm of unspecified site] Episodic Other connective tissue disease (2 sources) Hip joint prosthesis present; Translations: [Presence of unspecified artificial hip joint] Onset: 12-15-2022 Chronic Other connective tissue disease (1 source) Weakness of face muscles; Translations: [Facial weakness] Onset: 12-15-2022 Episodic Other connective tissue disease (1 source) Musculoskeletal symptom; Translations: [Other symptoms and signs involving the musculoskeletal system] Episodic Other nervous system disorders (1 source) Abnormal gait; Translations: [Unspecified abnormalities of gait and mobility] Onset: 05-25-2021 Episodic Other nervous system disorders (1 source) Lerner's palsy; 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 Other non-traumatic joint disorders (1 source) Pain of left hip joint; Translations: [Pain in left hip] Episodic Other upper respiratory infections (1 source) Acute sinusitis, unspecified; Translations: [Acute sinusitis, unspecified] Onset: 12-15-2022 Episodic Transient cerebral ischemia (1 source) Transient cerebral ischemia; Translations: [Transient cerebral ischemic attack, unspecified] Onset: 12-14-2022 Chronic Results Test Name Value Interpretation Reference Range Facility LABORATORYOrdered By: Kenyatta Love on 12-15-2022 Basophil, Absolute 0.0 103/mcL Invalid Interpretation Code 0.0 - 0.2 10^3/mcL AO Workflow SS Basophils/100 WBC (Bld) 0.1 % Invalid Interpretation Code 0.0 - 2.5 % AO Workflow SS Eosinophil, Absolute 0.0 103/mcL Invalid Interpretation Code 0.0 - 0.4 10^3/mcL AO Workflow SS Eosinophils/100 WBC (Bld) 0.0 % Invalid Interpretation Code 0.0 - 7.0 % AO Workflow SS Erythrocyte distribution width (RBC) [Ratio] 13.8 % Invalid Interpretation Code 11.5 - 14.5 % AO Workflow SS Hematocrit (Bld) [Volume fraction] 31.4 % Invalid Interpretation Code 37.0 - 47.0 % AO Workflow SS Hemoglobin (Bld) [Mass/Vol] 10.7 G/dL Invalid Interpretation Code 12.0 - 16.0 G/dL AO Workflow SS Lymphocyte, Absolute 0.9 103/mcL Invalid Interpretation Code 0.8 - 3.9 10^3/mcL AO Workflow SS Lymphocytes/100 WBC (Bld) 5.9 % Invalid Interpretation Code 10.0 - 50.0 % AO Workflow SS MCH (RBC) [Entitic mass] 31.4 pg Invalid Interpretation Code 27.0 - 31.2 pg AO Workflow SS MCHC 34.2 G/dL Invalid Interpretation Code 33.0 - 37.0 G/dL AO Workflow SS MCV (RBC) [Entitic vol] 91.7 fL Invalid Interpretation Code 80.0 - 94.0 fL AO Workflow SS Monocyte, Absolute 1.4 103/mcL Invalid Interpretation Code 0.2 - 1.0 10^3/mcL AO Workflow SS Monocytes/100 WBC (Bld) 9.8 % Invalid Interpretation Code 1.7 - 13.0 % AO Workflow SS Neutrophil, Absolute 12.4 103/mcL Invalid Interpretation Code 2.9 - 6.2 10^3/mcL AO Workflow SS Neutrophils/100 WBC (Bld) 84.2 % Invalid Interpretation Code 37.0 - 80.0 % AO Workflow SS Platelet mean volume (Bld) [Entitic vol] 8.6 fL Invalid Interpretation Code 7.4 - 10.4 fL AO Workflow SS Platelets (Bld) [#/Vol] 228 103/mcL Invalid Interpretation Code 130 - 400 10^3/mcL AO Workflow SS RBC (Bld) [#/Vol] 3.42 106/mcL Invalid Interpretation Code 4.20 - 5.40 10^6/mcL AO Workflow SS WBC (Bld) [#/Vol] 14.8 103/mcL Invalid Interpretation Code 4.6 - 10.8 10^3/mcL AO Workflow SS LABORATORYOrdered By: SYSTEM SYSTEM on 12-15-2022 Calcium [Mass/Vol] 8.8 mg/dL Invalid Interpretation Code 8.4 - 10.2 mg/dL AO ADM SS Chloride [Moles/Vol] 99 mmol/L Invalid Interpretation Code 98 - 107 mmol/L AO ADM SS CO2 [Moles/Vol] 23 mmol/L Invalid Interpretation Code 23 - 31 mmol/L AO ADM SS Creatinine [Mass/Vol] 0.80 mg/dL Invalid Interpretation Code 0.55 - 1.02 mg/dL AO ADM SS Electrolyte Balance 12.0 mEq/L Invalid Interpretation Code 4.0 - 15.0 mEq/L AO ADM SS GFR/1.73 sq M.predicted among blacks MDRD (S/P/Bld) [Vol rate/Area] 83 ml/min/1.73sqm Invalid Interpretation Code AO Chemistry S GFR/1.73 sq M.predicted among non-blacks MDRD (S/P/Bld) [Vol rate/Area] 69 ml/min/1.73sqm Invalid Interpretation Code AO Chemistry S Glucose [Mass/Vol] 145 mg/dL Invalid Interpretation Code 83 - 110 mg/dL AO ADM SS Potassium [Moles/Vol] 4.0 mmol/L Invalid Interpretation Code 3.5 - 5.1 mmol/L AO ADM SS Sodium [Moles/Vol] 134 mmol/L Invalid Interpretation Code 136 - 145 mmol/L AO ADM SS Urea nitrogen [Mass/Vol] 19 mg/dL Invalid Interpretation Code 7 - 18 mg/dL AO ADM SS Urea nitrogen/Creatinine [Mass ratio] 24 ratio Invalid Interpretation Code 7 - 27 ratio AO ADM SS LABORATORYOrdered By: SYSTEM SYSTEM on 12-14-2022 Calcium [Mass/Vol] 8.6 mg/dL Invalid Interpretation Code 8.4 - 10.2 mg/dL AO ADM SS Chloride [Moles/Vol] 100 mmol/L Invalid Interpretation Code 98 - 107 mmol/L AO ADM SS CO2 [Moles/Vol] 25 mmol/L Invalid Interpretation Code 23 - 31 mmol/L AO ADM SS Creatinine [Mass/Vol] 0.98 mg/dL Invalid Interpretation Code 0.55 - 1.02 mg/dL AO ADM SS Electrolyte Balance 13.0 mEq/L Invalid Interpretation Code 4.0 - 15.0 mEq/L AO ADM SS GFR/1.73 sq M.predicted among blacks MDRD (S/P/Bld) [Vol rate/Area] 66 ml/min/1.73sqm Invalid Interpretation Code AO Chemistry S GFR/1.73 sq M.predicted among non-blacks MDRD (S/P/Bld) [Vol rate/Area] 54 ml/min/1.73sqm Invalid Interpretation Code AO Chemistry S Glucose [Mass/Vol] 217 mg/dL Invalid Interpretation Code 83 - 110 mg/dL AO ADM SS Potassium [Moles/Vol] 3.4 mmol/L Invalid Interpretation Code 3.5 - 5.1 mmol/L AO ADM SS Sodium [Moles/Vol] 138 mmol/L Invalid Interpretation Code 136 - 145 mmol/L AO ADM SS Urea nitrogen [Mass/Vol] 14 mg/dL Invalid Interpretation Code 7 - 18 mg/dL AO ADM SS Urea nitrogen/Creatinine [Mass ratio] 14 ratio Invalid Interpretation Code 7 - 27 ratio AO ADM SS LABORATORYOrdered By: Landon Conrad on 12-14-2022 Glucose [Mass/Vol] 174 mg/dL Invalid Interpretation Code 82 - 115 mg/dL [facility] LABORATORYOrdered By: Gracie Botello on 12-14-2022 ABO/Rh Interp Positive Invalid Interpretation Code AO BB SS Antibody Screen Gel Negative ABSC (12/14/22 9:51 AM) Invalid Interpretation Code AO BB SS LABORATORYOrdered By: Gracie Botello on 11-15-2022 ABO/Rh Interp Positive Invalid Interpretation Code AO BB SS Antibody Screen Gel Negative ABSC (11/15/22 12:30 PM) Invalid Interpretation Code AO BB SS LABORATORYOrdered By: Electronic Brailler SYSTEM on 11-15-2022 Albumin BCP dye [Mass/Vol] 3.9 G/dL Invalid Interpretation Code 3.4 - 4.8 G/dL AO ADM SS Calcium [Mass/Vol] 9.6 mg/dL Invalid Interpretation Code 8.4 - 10.2 mg/dL AO ADM SS Chloride [Moles/Vol] 102 mmol/L Invalid Interpretation Code 98 - 107 mmol/L AO ADM SS CO2 [Moles/Vol] 30 mmol/L Invalid Interpretation Code 23 - 31 mmol/L AO ADM SS Creatinine [Mass/Vol] 0.68 mg/dL Invalid Interpretation Code 0.55 - 1.02 mg/dL AO ADM SS Electrolyte Balance 10.0 mEq/L Invalid Interpretation Code 4.0 - 15.0 mEq/L AO ADM SS GFR/1.73 sq M.predicted among blacks MDRD (S/P/Bld) [Vol rate/Area] 101 ml/min/1.73sqm Invalid Interpretation Code AO Chemistry S GFR/1.73 sq M.predicted among non-blacks MDRD (S/P/Bld) [Vol rate/Area] 83 ml/min/1.73sqm Invalid Interpretation Code AO Chemistry S Glucose [Mass/Vol] 107 mg/dL Invalid Interpretation Code 83 - 110 mg/dL AO ADM SS Potassium [Moles/Vol] 3.9 mmol/L Invalid Interpretation Code 3.5 - 5.1 mmol/L AO ADM SS Sodium [Moles/Vol] 142 mmol/L Invalid Interpretation Code 136 - 145 mmol/L AO ADM SS Urea nitrogen [Mass/Vol] 15 mg/dL Invalid Interpretation Code 7 - 18 mg/dL AO ADM SS Urea nitrogen/Creatinine [Mass ratio] 22 ratio Invalid Interpretation Code 7 - 27 ratio AO ADM SS LABORATORYOrdered By: Lisa Fowler on 11-15-2022 Basophil, Absolute 0.0 103/mcL Invalid Interpretation Code 0.0 - 0.2 10^3/mcL AO Workflow SS Basophils/100 WBC (Bld) 0.7 % Invalid Interpretation Code 0.0 - 2.5 % AO Workflow SS Eosinophil, Absolute 0.1 103/mcL Invalid Interpretation Code 0.0 - 0.4 10^3/mcL AO Workflow SS Eosinophils/100 WBC (Bld) 2.1 % Invalid Interpretation Code 0.0 - 7.0 % AO Workflow SS Erythrocyte distribution width (RBC) [Ratio] 13.5 % Invalid Interpretation Code 11.5 - 14.5 % AO Workflow SS Hematocrit (Bld) [Volume fraction] 42.1 % Invalid Interpretation Code 37.0 - 47.0 % AO Workflow SS Hemoglobin (Bld) [Mass/Vol] 14.2 G/dL Invalid Interpretation Code 12.0 - 16.0 G/dL AO Workflow SS Lymphocyte, Absolute 1.5 103/mcL Invalid Interpretation Code 0.8 - 3.9 10^3/mcL AO Workflow SS Lymphocytes/100 WBC (Bld) 24.7 % Invalid Interpretation Code 10.0 - 50.0 % AO Workflow SS MCH (RBC) [Entitic mass] 31.3 pg Invalid Interpretation Code 27.0 - 31.2 pg AO Workflow SS MCHC 33.8 G/dL Invalid Interpretation Code 33.0 - 37.0 G/dL AO Workflow SS MCV (RBC) [Entitic vol] 92.5 fL Invalid Interpretation Code 80.0 - 94.0 fL AO Workflow SS Monocyte, Absolute 0.6 103/mcL Invalid Interpretation Code 0.2 - 1.0 10^3/mcL AO Workflow SS Monocytes/100 WBC (Bld) 10.1 % Invalid Interpretation Code 1.7 - 13.0 % AO Workflow SS Neutrophil, Absolute 3.8 103/mcL Invalid Interpretation Code 2.9 - 6.2 10^3/mcL AO Workflow SS Neutrophils/100 WBC (Bld) 62.4 % Invalid Interpretation Code 37.0 - 80.0 % AO Workflow SS Platelet mean volume (Bld) [Entitic vol] 8.3 fL Invalid Interpretation Code 7.4 - 10.4 fL AO Workflow SS Platelets (Bld) [#/Vol] 244 103/mcL Invalid Interpretation Code 130 - 400 10^3/mcL AO Workflow SS RBC (Bld) [#/Vol] 4.55 106/mcL Invalid Interpretation Code 4.20 - 5.40 10^6/mcL AO Workflow SS WBC (Bld) [#/Vol] 6.1 103/mcL Invalid Interpretation Code 4.6 - 10.8 10^3/mcL AO Workflow SS LABORATORYOrdered By: Daniel Bro on 05-25-2021 Basophil, Absolute 0.00 103/mcL Invalid Interpretation Code 0.00 - 0.19 10^3/mcL AO Auto Heme SS Basophils/100 WBC (Bld) 0.7 % Invalid Interpretation Code 0.0 - 2.5 % AO Auto Heme SS Calcium [Mass/Vol] 9.4 mg/dL Invalid Interpretation Code 8.4 - 10.2 mg/dL AO ADM SS Chloride [Moles/Vol] 101 mmol/L Invalid Interpretation Code 98 - 107 mmol/L AO ADM SS CO2 [Moles/Vol] 26 mmol/L Invalid Interpretation Code 23 - 31 mmol/L AO ADM SS Creatinine [Mass/Vol] 0.52 mg/dL Invalid Interpretation Code 0.55 - 1.02 mg/dL AO ADM SS Electrolyte Balance 10.0 mEq/L Invalid Interpretation Code AO ADM SS Eosinophil, Absolute 0.10 103/mcL Invalid Interpretation Code 0.00 - 0.40 10^3/mcL AO Auto Heme SS Eosinophils/100 WBC (Bld) 2.0 % Invalid Interpretation Code 0.0 - 7.0 % AO Auto Heme SS Erythrocyte distribution width (RBC) [Ratio] 13.4 % Invalid Interpretation Code 11.5 - 14.5 % AO Auto Heme SS Glucose [Mass/Vol] 107 mg/dL Invalid Interpretation Code 83 - 110 mg/dL AO ADM SS Hematocrit (Bld) [Volume fraction] 42.9 % Invalid Interpretation Code 37.0 - 47.0 % AO Auto Heme SS Hemoglobin (Bld) [Mass/Vol] 14.8 G/dL Invalid Interpretation Code 12.0 - 16.0 G/dL AO Auto Heme SS Lymphocyte, Absolute 1.50 103/mcL Invalid Interpretation Code 0.77 - 3.85 10^3/mcL AO Auto Heme SS Lymphocytes/100 WBC (Bld) 26.7 % Invalid Interpretation Code 10.0 - 50.0 % AO Auto Heme SS MCH (RBC) [Entitic mass] 31.3 pg Invalid Interpretation Code 27.0 - 31.2 pg AO Auto Heme SS MCHC (RBC) [Mass/Vol] 34.5 G/dL Invalid Interpretation Code 33.0 - 37.0 G/dL AO Auto Heme SS MCV (RBC) [Entitic vol] 90.7 fL Invalid Interpretation Code 80.0 - 94.0 fL AO Auto Heme SS Monocyte, Absolute 0.60 103/mcL Invalid Interpretation Code 0.15 - 1.00 10^3/mcL AO Auto Heme SS Monocytes/100 WBC (Bld) 9.9 % Invalid Interpretation Code 1.7 - 13.0 % AO Auto Heme SS Neutrophil, Absolute 3.40 103/mcL Invalid Interpretation Code 2.85 - 6.16 10^3/mcL AO Auto Heme SS Neutrophils/100 WBC (Bld) 60.7 % Invalid Interpretation Code 37.0 - 80.0 % AO Auto Heme SS Platelet mean volume (Bld) [Entitic vol] 7.9 fL Invalid Interpretation Code 7.4 - 10.4 fL AO Auto Heme SS Platelets (Bld) [#/Vol] 237 103/mcL Invalid Interpretation Code 130 - 400 10^3/mcL AO Auto Heme SS Potassium [Moles/Vol] 3.3 mmol/L Invalid Interpretation Code 3.5 - 5.1 mmol/L AO ADM SS RBC (Bld) [#/Vol] 4.74 106/mcL Invalid Interpretation Code 4.20 - 5.40 10^6/mcL AO Auto Heme SS Sodium [Moles/Vol] 137 mmol/L Invalid Interpretation Code 136 - 145 mmol/L AO ADM SS Troponin I.cardiac DL <= 0.01 ng/mL [Mass/Vol] 88.8 ng/L Invalid Interpretation Code 0.0 - 51.4 ng/L AO ADM SS Urea nitrogen [Mass/Vol] 12 mg/dL Invalid Interpretation Code 7 - 18 mg/dL AO ADM SS Urea nitrogen/Creatinine [Mass ratio] 23 ratio Invalid Interpretation Code 7 - 27 ratio AO ADM SS WBC (Bld) [#/Vol] 5.60 103/mcL Invalid Interpretation Code 4.60 - 10.80 10^3/mcL AO Auto Heme SS LABORATORYOrdered By: SYSTEM SYSTEM on 05-25-2021 GFR 138 ml/min/1.73sqm Invalid Interpretation Code AO Chemistry S GFR Non- 114 ml/min/1.73sqm Invalid Interpretation Code AO Chemistry S [facility] Surgical Pathology Dep artmenton 03-05-2019 [facility] Surgical [facility]ology Department Name RADHA SAUCEDO Pathologist: PAU GLASER MD Date of Procedure: 03/05/2019 Date Received: 03/05/2019 Date Reported 03/06/2019 Submitting Physician: ALICIA ANSARI MD Location: [facility] Copy To/Referring/Attendi ng: HUI DOCKERY DO FINAL DIAGNOSIS A. ILEOCECAL VALVE POLYP X2 POLYPECTOMY (COLD SNARE): -- TUBULAR ADENOMAS. Electronically Signed Out By PAU GLASER MD/RFA Clinical History: Therapeutic procedure for colon polyps Specimens Submitted As: A: ILEOCECAL VALVE POLYP X2 POLYPECTOMY (COLD SNARE) Gross Description: Received in formalin, labeled with the patient's name, hospital number, and 1. Ileocecal valve polyp , are two polypoid segments of dick, soft tissue both measuring 0.3 x 0.2 x 0.2 cm. The specimen is filtered and submitted in toto in one cassette. JS lucrecia/03/05/2019 Normal [facility] Comment on above: Performed By: #### A #### [facility] Surgical Pathology Department [address] [facility] [id number] Otheron 07-07-2004 CONVERTED ELECTRONIC SIGNATURE TAVON MCNEIL M.D. (Electronic signature on file) Final Signed Out: 07/07/2004 15:38 [facility] CONVERTED FINAL DIAGNOSIS SPECIMEN ADEQUACY SATISFACTORY FOR EVALUATION. ENDOCERVICAL/TRANSFO RMATION ZONE COMPONENTS PRESENT. GENERAL CATEGORIZATION NEGATIVE FOR INTRAEPITHELIAL LESION OR MALIGNANCY. INTERPRETATION/RESUL T ATROPHY. [facility] CONVERTED ORDERING PROVIDER Ordering Provider: ELIJAH CARRANZA [facility] CONVERTED PAP DISCLAIMER The Pap test serves as a screening tool for early detection of cervical cancer. The Pap test does not represent a final diagnostic test for cervical cancer. Furthermore, the Pap test was not designed to screen for other malignancies (endometrial, ovarian cancer, etc....). False negatives and false positives have occurred. If clinically indicated, further patient evaluation is recommended. [facility] 06-14-2003 CONVERTED ELECTRONIC SIGNATURE TAVON MCNEIL M.D. (Electronic signature on file) Final Signed Out: 06/14/2003 17:02 [facility] CONVERTED FINAL DIAGNOSIS SPECIMEN ADEQUACY SATISFACTORY FOR EVALUATION. ENDOCERVICAL/TRANSFO RMATION ZONE COMPONENTS PRESENT. GENERAL CATEGORIZATION NEGATIVE FOR INTRAEPITHELIAL LESION OR MALIGNANCY. INTERPRETATION/RESUL T ATROPHY. [facility] CONVERTED ORDERING PROVIDER Ordering Provider: ELIJAH CARRANZA [facility] CONVERTED PAP DISCLAIMER The Pap test serves as a screening tool for early detection of cervical cancer. The Pap test does not represent a final diagnostic test for cervical cancer. Furthermore, the Pap test was not designed to screen for other malignancies (endometrial, ovarian cancer, etc....). False negatives and false positives have occurred. If clinically indicated, further patient evaluation is recommended. [facility] 02-16-2002 CONVERTED ELECTRONIC SIGNATURE VENKAT ANGULO(ASCP) (Electronic signature on file) Final Signed Out: 02/16/2002 12:57 [facility] FINAL DIAGNOSIS SPECIMEN ADEQUACY SATISFACTORY FOR EVALUATION GENERAL CATEGORIZATION WITHIN NORMAL LIMITS HORMONAL EVALUATION ATROPHY [facility] CONVERTED ORDERING PROVIDER Ordering Provider: ELIJAH CARRANZA [facility] CONVERTED PAP DISCLAIMER The Pap test serves as a screening tool for early detection of cervical cancer. The Pap test does not represent a final diagnostic test for cervical cancer. Furthermore, the Pap test was not designed to screen for other malignancies (endometrial, ovarian cancer, etc....). False negatives and false positives have occurred. If clinically indicated, further patient evaluation is recommended. [facility] 01-24-2001 CONVERTED ELECTRONIC SIGNATURE TAVON MCNEIL M.D. 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 HORMONAL EVALUATION ATROPHY [facility] ORDERING PROVIDER Ordering Provider: ELIJAH CARRANZA [facility] CONVERTED PAP DISCLAIMER The Pap test serves as a screening tool for early detection of cervical cancer. The Pap test does not represent a final diagnostic test for cervical cancer. Furthermore, the Pap test was not designed to screen for other malignancies (endometrial, ovarian cancer, etc....). False negatives and false positives have occurred. If clinically indicated, further patient evaluation is recommended. [facility] 11-30-1999 CONVERTED ELECTRONIC SIGNATURE ELMER STEPHENS [employer]UCTURAL ENGINEERING TECHNICIAN (Electronic signature on file) Final Signed Out: 11/30/1999 16:16 [facility] CONVERTED FINAL DIAGNOSIS SPECIMEN ADEQUACY SATISFACTORY FOR EVALUATION GENERAL CATEGORIZATION WITHIN NORMAL LIMITS HORMONAL EVALUATION HORMONAL PATTERN COMPATIBLE WITH AGE AND HISTORY J.W. [facility] CONVERTED ORDERING PROVIDER Ordering Provider: ELIJAH CARRANZA [facility] CONVERTED PAP DISCLAIMER The Pap test serves as a screening tool for early detection of cervical cancer. The Pap test does not represent a final diagnostic test for cervical cancer. Furthermore, the Pap test was not designed to screen for other malignancies (endometrial, ovarian cancer, etc....). False negatives and false positives have occurred. If clinically indicated, further patient evaluation is recommended. [facility] 10-28-1998 CONVERTED ELECTRONIC SIGNATURE ELMER STEPHENS STRUCTURAL ENGINEERING TECHNICIAN (Electronic signature on file) Final Signed Out: 10/28/1998 16:34 [facility] FINAL DIAGNOSIS SPECIMEN ADEQUACY SATISFACTORY FOR CYTOLOGIC EVALUATION BUT LIMITED BY: NO ENDOCERVICAL COMPONENTS. GENERAL CATEGORIZATION WITHIN NORMAL LIMITS HORMONAL EVALUATION HORMONAL PATTERN COMPATIBLE WITH AGE AND HISTORY [facility] ORDERING PROVIDER Ordering Provider: ELIJAH CARRANZA [facility] CONVERTED PAP DISCLAIMER The Pap test serves as a screening tool for early detection of cervical cancer. The Pap test does not represent a final diagnostic test for cervical cancer. Furthermore, the Pap test was not designed to screen for other malignancies (endometrial, ovarian cancer, etc....). False negatives and false positives have occurred. If clinically indicated, further patient evaluation is recommended. [facility] Vital Signs Date Time Vital Sign Value Performing Clinician Faci mariama 12-15-2022 12:42-0400 Body temperature 96.8 [degF] DR ELIAS PENALOZA MD [facility] 12-15-2022 12:42-0400 Diastolic Blood Pressure Non-Invasive [address] ELIAS PENALOZA MD [facility] 12-15-2022 12:42-0400 Heart rate 62 /min DR ELIAS PENALOZA MD [facility] 12-15-2022 12:42-0400 Reason For Taking VItal Signs DR ELIAS PENALOZA MD [facility] 12-15-2022 12:42-0400 Respiratory rate 14 /min DR ELIAS PENALOZA MD [facility] 12-15-2022 12:42-0400 Systolic Blood Pressure Non-Invasive [address] ELIAS PENALOZA MD [facility] 12-15-2022 09:04-0400 Heart rate 70 /min DR ELIAS PENALOZA MD [facility] 12-15-2022 07:31-0400 Body temperature 97.88 [degF] DR ELIAS PENALOZA MD [facility] 12-15-2022 07:31-0400 Diastolic Blood Pressure Non-Invasive [address] ELIAS PENALOZA MD [facility] 12-15-2022 07:31-0400 Heart rate 64 /min DR ELIAS PENALOZA MD [facility] 12-15-2022 07:31-0400 Reason For Taking VItal Signs DR ELIAS PENALOZA MD [facility] 12-15-2022 07:31-0400 Respiratory rate 16 /min DR ELIAS PENALOZA MD [facility] 12-15-2022 07:31-0400 Systolic Blood Pressure Non-Invasive [address] ELIAS PENALOZA MD [facility] 12-15-2022 03:53-0400 Body temperature 97.88 [degF] DR ELIAS PENALOZA MD [facility] 12-15-2022 03:53-0400 Diastolic Blood Pressure Non-Invasive [address] ELIAS PENALOZA MD [facility] 12-15-2022 03:53-0400 Heart rate 84 /min DR ELIAS PENALOZA MD [facility] 12-15-2022 03:53-0400 Respiratory rate 16 /min DR ELIAS PENALOZA MD [facility] 12-15-2022 03:53-0400 Systolic Blood Pressure Non-Invasive [address] ELIAS PENALOZA MD [facility] 12-14-2022 23:38-0400 Body temperature 98.42 [degF] DR ELIAS PENALOZA MD [facility] 12-14-2022 23:38-0400 Heart rate 71 /min DR ELIAS EPNALOZA MD [facility] 12-14-2022 23:38-0400 Reason For Taking VItal Signs DR ELIAS PENALOZA MD [facility] 12-14-2022 20:09-0400 Body temperature 97.88 [degF] DR ELIAS PENALOZA MD [facility] 12-14-2022 20:09-0400 Heart rate 90 /min DR ELIAS PENALOZA MD [facility] 12-14-2022 17:05-0400 Body temperature 97.88 [degF] DR ELIAS PENALOZA MD [facility] 12-14-2022 15:12-0400 Body height 165.[address] ELIAS PENALOZA MD [facility] 12-14-2022 15:12-0400 Body weight [address] ELIAS PENALOZA MD [facility] 12-14-2022 15:12-0400 Body weight 25.68 kg/m2 DR ELIAS PENALOZA MD [facility] 12-14-2022 14:15-0400 Body temperature 97.34 [degF] DR ELIAS PENALOZA MD [facility] 12-14-2022 13:15-0400 Respiratory Rate - Anes 11 br/min DR ELIAS PENALOZA MD [facility] 12-14-2022 13:10-0400 Respiratory Rate - Anes 11 br/min DR ELIAS PENALOZA MD [facility] 12-14-2022 13:05-0400 Respiratory Rate - Anes 12 br/min DR ELIAS PENALOZA MD [facility] 12-14-2022 09:50-0400 Body height 165.[address] ELIAS PENALOZA MD [facility] 12-14-2022 09:50-0400 Body weight [address] ELIAS PENALOZA MD [facility] 12-14-2022 09:50-0400 Heart rate 53 /min DR ELIAS PENALOZA MD [facility] 11-15-2022 12:05-[address] ELIAS PENALOZA MD [facility] 11-15-2022 12:05-[address] ELIAS Brothers [facility] 11-15-2022 12:05-0400 Body height 165.[address] ELIAS PENALOZA MD [facility] 11-15-2022 12:05-0400 Body weight [address] ELIAS PENALOZA MD [facility] 11-15-2022 12:05-0400 Body weight 25.68 kg/m2 DR ELIAS PENALOZA MD [facility] 11-15-2022 12:05-0400 Diastolic Blood Pressure Non-Invasive [address] ELIAS PENALOZA MD [facility] 11-15-2022 12:05-0400 Heart rate 64 /min DR ELIAS PENALOZA MD [facility] 11-15-2022 12:05-0400 Respiratory rate 18 /min DR ELIAS PENALOZA MD [facility] 11-15-2022 12:05-0400 Systolic Blood Pressure Non-Invasive [address] ELIAS PENALOZA MD [facility] 05-25-2021 14:04-0500 Diastolic blood pressure 80 mm[Hg] JERRY DENNIS MD [facility] 05-25-2021 14:04-0500 Heart rate 65 /min JERRY DENNIS MD [facility] 05-25-2021 14:04-0500 Respiratory rate 16 /min JERRY DENNIS MD [facility] 05-25-2021 14:04-0500 Systolic blood pressure 191 mm[Hg] JERRY DENNIS MD [facility] 05-25-2021 13:30-0500 Diastolic blood pressure 91 mm[Hg] JERRY DENNIS MD [facility] 05-25-2021 13:30-0500 Heart rate 63 /min JERRY DENNIS MD [facility] 05-25-2021 13:30-0500 Respiratory rate 15 /min JERRY DENNIS MD [facility] 05-25-2021 13:30-0500 Systolic blood pressure 210 mm[Hg] JERRY DENNIS MD [facility] 05-25-2021 13:00-0500 Diastolic blood pressure 81 mm[Hg] JERRY DENNIS MD [facility] 05-25-2021 13:00-0500 Heart rate 60 /min JERRY DENNIS MD [facility] 05-25-2021 13:00-0500 Systolic blood pressure 204 mm[Hg] JERRY DENNIS MD [facility] 05-25-2021 12:36-0500 Heart rate 87 /min JERRY DENNIS MD [facility] 05-25-2021 12:19-0500 Heart rate 54 /min JERRY DENNIS MD [facility] 05-25-2021 11:45-0500 Mean blood pressure 126 mm[Hg] JERRY DENNIS MD [facility] 05-25-2021 11:04-0500 Body height 165 cm JERRY DENNIS MD [facility] 05-25-2021 11:04-0500 Body temperature 97.52 [degF] JERRY DENNIS MD [facility] 05-25-2021 11:04-0500 Body weight 72.7 kg JERRY DENNIS MD [facility] 05-25-2021 11:04-0500 diastolic 104 mm[Hg] JERRY DENNIS MD [facility] 05-25-2021 11:04-0500 Heart rate 65 /min JERRY DENNIS MD [facility] 05-25-2021 11:04-0500 systolic 237 mm[Hg] JERRY DENNIS MD [facility] Encounters Encounter Date Encounter Type Care Provider Facility Start: 12-22-2023 ambulatory SUSAN THURMAN DO Fac ility:B Start: 12-17-2022 End: 01-26-2023 Physical therapy management ULISES KIMBALL PA-C [facility] Start: 12-14-2022 End: 12-15-[address] ELIAS PENALOZA MD [facility] Start: 11-15-2022 End: 11-15-[address] ELIAS PENALOZA MD [facility] Start: 03-04-2022 End: 04-13-2022 Physical therapy management VANITA MEHTA PA-C [facility] Start: 05-25-2021 End: 05-25-2021 Emergency department patient visit JERRY DENNIS MD [facility] Start: 06-23-2020 AUDIT Hui aburto Work Phone: FS-Dfbkftivexofrmoi-Y jael [facility] Work Phone: Start: 06-26-2004 End: 06-26-2004 Patient encounter procedure [facility] Start: 06-26-2004 Results Only Elijah Juan C Carranza [facility] Start: 06-06-2003 End: 06-06-2003 Patient encounter procedure [facility] Start: 06-06-2003 Results Only Elijah Juan C Carranza [facility] Start: 02-13-2002 End: 02-13-2002 Patient encounter procedure [facility] Start: 02-13-2002 Results Only Elijah Juan C Carranza [facility] Start: 01-23-2001 End: 01-23-2001 Patient encounter procedure [facility] Start: 01-23-2001 Results Only Elijah Juan C Carranza [facility] Start: 11-26-1999 End: 11-26-1999 Patient encounter procedure [facility] Start: 11-26-1999 Results Only Elijah Juan C Carranza [facility] Start: 10-06-1998 End: 10-06-1998 Patient encounter procedure [facility] Start: 10-06-1998 Results Only Elijah Juan C Carranza [facility] Procedures Date Procedure Procedure Detail Performing Clinician Start: 12-14-2022 Left hip region stru cture (body structure) DR ELIAS PENALOZA MD Start: 08-14-2019 History of reverse prosthetic total arthroplasty of right shoulder JERRY DENNIS MD Start: 02-15-2019 Colonoscopy JERRY POSADA MD Start: 11-15-2018 Colonoscopy JERRY POSADA MD Start: 11-01-2007 Colonoscopy Elijah osorio Start: 06-26-2004 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 Elijah Juan C Carranza Start: 06-06-2003 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 Elijah Juan C Acrranza Start: 02-13-2002 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 Elijah Juan C Carranza Start: 01-23-2001 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 Elijah Juan C Carranza Start: 11-26-1999 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 Start: 10-31-2017 Colonoscopy COLONOSCOPY [facility] Start: 2006 ADVANCE DIRECTIVE DISCUSSION ADVANCE DIRECTIVE DISCUSSION [facility] Start: 2006 BONE DENSITY BONE DENSITY [facility] Start: 2006 PNEUMOVAX AGE 65 AND OVER WITH 5YR LOOKBACK (#1) PNEUMOVAX AGE 65 AND OVER WITH 5YR LOOKBACK (#1) [facility] Start: 10-24-1991 SHINGRIX VACCINE (1 of 2) SMALLWOOD GRIX VACCINE (1 of 2) [facility] Start: 1986 DIABETES SCREEN DIABETES SCREEN [facility] Start: 1986 LIPID SCREEN LIPID SCREEN [facility] Start: 1960 Urine microalbumin profile DTAP,TDAP ,TD (1 - Tdap) [facility] Start: 10-24-1959 ANNUAL PCP TEAM WASTE DUSTER [place] DISEASE VISIT ANNUAL PCP TEAM CHRONIC DISEASE VISIT [facility] Start: 10-24-1959 BP CONTROLLED (<130/80) BP CONTROLLE D (<130/80) [facility] Start: 10-24-1959 HEPATITIS C SCREENING HEPATITIS C MD BARON [facility] Immunizations Immunization Date Immunization Notes Care Provider Jose espana 05-06-2022 SARS-CoV-2 (CV19)mRNA-1273 bivalent vac ULISES KIMBALL PA-C [facility] 05-06-2022 SARSCoV2 (CV19)mRNA-1273(6y+ bival gabbie DR ELIAS PENALOZA MD [facility] 04-16-2022 influenza virus vaccine, unspecified formulation DR ELIAS PENALOZA MD [facility] 11-24-2021 SARS-CoV-2 (COVID-19 ) mRNA-[address] ELIAS PENALOZA MD [facility] 05-12-2021 SARS-CoV-2 (COVID-19 ) mRNA-[address] ELIAS PENALOZA MD [facility] 04-21-2021 influenza virus vaccine, unspecified formulation DR ELIAS PENALOZA MD [facility] 09-26-2020 SARS-CoV-2 (COVID-19 ) mRNA-[address] ELIAS PENALOZA MD [facility] 08-29-2020 SARS-CoV-2 (COVID-19 ) mRNA-[address] ELIAS PENALOZA MD [facility] 05-13-[address] ELIAS PENAOLZA MD [facility] 03-07-2020 influenza virus vaccine, unspecified formulation DR ELIAS PENALOZA MD [facility] 03-07-[address] ELIAS PENALOZA MD [facility] 04-16-2019 influenza virus vaccine, unspecified formulation DR ELIAS PENALOZA MD [facility] 04-21-2018 influenza virus vaccine, unspecified formulation DR ELIAS PENALOZA MD [facility] Payers Date Payer Category Payer Unknown [id number] 2002 [place] [id number] [id number] 2002-2017 O [id number] 1941 Unknown [id number] Unknown [employer] Social History Date Type Detail Facility Tobacco smoking stat [facility] Unknown if ever smoked [facility] Sex Assigned At Not on file [facility] Start: 08-07-2019 Never smoked t obacco (finding) [facility] Sex Assigned At [facility] Functional Status Date Assessment Result Facility 12-17-2022 Functional Status Objective: Cardiovascular screen: BP: 136/80 HR: 62 BPM O2 sat: 98% Gait: Ambulates with fWW needs some cues for close proximity to FWW Calf girth: 39cmR cm: 38 L Weight bearing status: WBAT Effusion: min effusion bilat legs denies calf pain, denies chest pain or shortness of breath. Functional Strength: Relies on UE needs some cues to push from arms of chair for sit to stand. [facility] 12-15-2022 Functional Status Room check performed [facility] 12-15-2022 Functional Status 2 [facility] 12-15-2022 Functional Status [facility] 12-15-2022 Functional Status SCD On/Re-appl ied bilateral knee high [facility] 12-14-2022 Functional Status [facility] 12-14-2022 Functional Status Supervised [facility] 12-14-2022 Functional Status Single level h ome, 1st floor bedroom, 1st floor bathroom, 1st floor laundry [facility] 12-14-2022 Functional Status ice on, tension pillow in place [facility] 12-14-2022 Functional Status Maintained [facility] 03-04-2022 Functional Status OBJECTIVE BP: 160/72 Posture: forward head posture Gait: amb with no AD, stiff trunk, narrow BLAKE Transfers: use of UEs, unable to perform sit to stand without UEs Sensation: no abnormalities or asymmetries Reflexes: NT Edema: none AROM: 0-120 PROM: WNL FADDIR: neg DEE DEE: neg 5x STS (modified with use of UEs): 15 seconds [facility] Mental Status Date Assessment Result Facility 12-15-2022 Mental Status Oriented x 4, Forgetful [facility] 12-15-2022 Mental Status [facility] 12-15-2022 Mental Status [facility] 12-14-2022 Mental Status [facility] 12-14-2022 Mental Status [facility] Clinical Notes 05-25-2021 to 12-15-2022 Note Date & Type Note Facility 12-15-2022 Note Discharge Instructions Thank you for allowing [facility] to assist you with your healthcare needs. The following is important discharge information regarding your hospital visit. Your Care Team /[facility] Your Diagnosis Facial droop Lerner's palsy Osteoarthritis S/P total hip arthroplasty HTN (hypertension) HLD (hyperlipidemia) Acute sinusitis Transient ischemic attack What to do next Instructions From Your Doctor You are admitted for left hip replacement. After arriving to the floor you were noted to have a left sided facial droop. There was concern for mini stroke or stroke. You had an MRI of your brain that showed that you did not have a stroke. Your MRI did show acute sinusitis. A prescription for Flonase nasal spray will be sent to your pharmacy. 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 This is a condition that can cause facial weakness or drooping. It happens when one of the nerve muscles in the face gets damaged or stops working. Damage to this nerve usually happens when the nerve becomes swollen or inflamed because of an infection with a virus. This is likely related to the viral sinusitis that was found on MRI. You will be treated with steroids for 1 week. You will need to follow-up with your primary care doctor within this timeframe. Recovery can take anywhere from 3 to 6 months. Scheduled Follow-Up Appointments Appointment Type When Where Contact InformationPT Outpatient Evaluation 12/17/2022 01:00 PM EDT [facility] [phone] Follow Up Appointments Follow Up with VANITA MEHTA PA-C, Orthopedic When 12/27/2022 01:30 PM EDT Why: This is your post-op appointment. Follow-up as scheduled. Where: [facility] [address] [place] [address]- Follow Up with [facility] When 12/17/2022 01:00 PM EDT Why: This is your first physical therapy appointment. Follow-up as scheduled. Where: [address] [place] [phone] Follow Up with HUI DOCKERY DO When Within 3-5 days Why: I left a message at PCP's office requesting they call pt to schedule a Follow up appt. Where: [address] [place] [address]- The Following Activity and Diet Have Been Ordered for You FOLLOW POST-OP INSTRUCTIONS Allergies amoxicillin (Abdominal pain) penicillin (ABDOMINAL PAIN) Medications Please ask your primary doctor or pharmacist before taking any other medication not listed, including over the counter drugs, herbal medications, vitamins and or supplements as they may interact with your home medications. What How Much When Instructions Last Dose New acetaminophen (acetaminophen 500 mg oral tablet) 2 tab(s) by mouth Every 4 hours as needed for as needed for pain Pickup at [facility] #[id number] 12/15/22 @1204PM New aspirin (aspirin 81 mg oral delayed release tablet) 1 tab(s) by mouth Two (2) times a day Duration: 30 Days Take for 4 weeks post-operatively for DVT prophylaxis Pickup at [facility] #[id number] 12/15/22 @904AM New docusate-senna (Senokot S 50 mg-8.6 mg oral tablet) 2 tab(s) by mouth Two (2) times a day Duration: 3 Days Take until first bowel movement, then as needed Pickup at [id number] 12/15/22 @904AM New famotidine (Pepcid 20 mg oral tablet) 1 tab(s) by mouth Once a day Pickup at [id number] 12/15/22 @904AM New fluticasone nasal (Flonase 50 mcg/ inh nasal spray) 2 spray(s) each nostril Once a day (in the morning) Duration: 10 Days Pickup at [place] [id number] NOT GIVEN New meloxicam (Mobic 7.5 mg oral tablet) 1 tab(s) by mouth Twice daily with meals Pickup at [place] [id number] NOT GIVEN New predniSONE (predniSONE 10 mg oral tablet) 6 tab(s) by mouth Once a day Duration: 7 Days Pickup at [id number] 12/15/22 @141PM Unchanged atenolol (atenolol 50 mg oral tablet) 1 tab(s) by mouth Once a day 12/15/22 @904AM Unchanged atorvastatin (atorvastatin 20 mg oral tablet) 1 tab(s) by mouth Once a day 12/14/22 @911PM Unchanged calcium-vitamin D (calcium (as citrate)-vitamin D 315 mg-250 intl units (6. 25 mcg) oral tablet) 2 tab(s) by mouth Two (2) times a day NOT GIVEN Unchanged cholecalciferol (Vitamin D3) 2,000 unit(s) by mouth Every day NOT GIVEN Unchanged indapamide (indapamide 1.25 mg oral tablet) 1 tab(s) by mouth Once a day NOT GIVEN Unchanged irbesartan (irbesartan 150 mg oral tablet) 1 tab(s) by mouth Every day 12/15/22 @904AM Unchanged potassium chloride (potassium chloride 20 mEq oral tablet, extended release) 1 tab(s) by mouth Two (2) times a day 12/15/22 @908AM Pharmacy Information [id number]: [address] [place], [place] [phone] Please take this list to your next doctor s visit. Bring all medications you take, including over the counter medications, herbals and other supplements with you to your doctor s visit. Patients and families are reminded to discard old lists and to update any records with all medication providers or retail pharmacies. Education Materials [facility] Post-operative Instructions PLEASE FOLLOW [facility] POST-OP INSTRUCTIONS GIVEN WATCH FOR SIGNS OF INFECTION: call the office ([phone]) if experencing any of the following: (Usually appears 36-48 hours after surgery) Increased temperature (101 degrees Fahrenheit or higher) Redness or swelling Increased uncontrolled pain Foul odor or drainage Calf discomfort Significant swelling Or if having any chest pain, shortness of breath, or difficulty breathing or swallowing call the office or go the nearest Emergency Room. If you have any questions, please call your doctor at the number listed on your follow up instructions. Form: 338A ([id number]) R: 11/21 Additional Information VACCINATE! IT SAVES LIVES! Members of the community who have not yet received the COVID-19 vaccine and would like to receive it can visit one of [facility] vaccine clinics. There are many vaccine clinic locations within the [facility]. For locations and available times, please visit [email or web address].o wio.gov/. It is important to note that some COVID mobile vaccine clinics are held outdoors and may be canceled in rainy or stormy conditions. To learn more about pediatric vaccinations (ages 5-11), we invite you to visit the [facility] webpage. [email or web address] To learn more about the COVID-19 vaccine, we invite you to visit the CDC website for a list of frequently asked questions.https://www.cdc.gov/co ronavirus/2019-ncov/vaccines/faq .html [facility] Patient Portal Access Instructions: Stay connected with your healthcare team and access your personal medical information anytime with the [facility] Patient Portal. Please follow the directions below to create your [facility] account: 1.Access the email account you provided upon registration to the hospital/physician office.2.Look for an invitation email from [facility].3.Open the email and access the invitation link: Accept Invitation to [email or web address].4.Fill in the required ferrari to create your account. To access your account, visit [email or web address]. Click the blue button labeled Access Patient Portal and then log in with the username and password that you created in the steps above. You will be able to view your test results, lab results, a summary of your visits, upcoming appointments and more. There is also a convenient messaging option where you can send secure messages to your provider. In addition, you will have the ability to download any documents or summaries to your computer and/or send the information securely to a physician. Remember that your healthcare information is confidential, so carefully consider who you will allow to register on the [place] [facility] Patient Portal for access to your information. You can also access the [place] [facility] Patient Portal on the [place] [facility] [place]. Simply click on Patient Portal and then log into your account. If you would like to receive a full copy of your medical records, please contact the [facility] Medical Records Department by calling [phone], Tuesday through Tuesday between 8 a.m. and 4:30 p.m. HOW TO SAFELY DISPOSE OF PRESCRIPTION MEDICATIONS Please use one of the following methods to safely dispose of your unused medications. 1.Use a drug disposal kit: the drug disposal pouch allows you to safely discard your old and unused drugs. Ask your nurse to give you one when you are discharged.2.Visit a local take-back location: Many local pharmacies and police departments have programs that collect old and unwanted prescription drugs. Call your local pharmacy or go to http://bit.ly/5H1Sr8m to find one close to you.3.Make use of household items: Use cat litter or old coffee grounds to dispose medications if other options are not available. Mix your drugs with these household products, seal them in an airtight container and throw it into the garbage. Call [facility]: [phone] to be sure your drugs can be disposed of in this way. Some medicines may require a different approach.4.Never flush your medications down the toilet. IF YOU HAVE BEEN PRESCRIBED AN OPIOID FOR PAIN If you have been prescribed an opioid (such as hydrocodone, oxycodone or morphine), it is critical to understand the possible side effects and risks of opioid pain medications. Even when taken as directed, opioids can have several side effects including: Tolerance, meaning you might need to take more of a medication for the same pain relief. Nausea, vomiting and/or constipation. Sleepiness, dizziness, dry mouth, confusion, depression or itching. Physical dependence, meaning you have withdrawal symptoms when a medication is stopped, can develop within a few days. KNOW YOUR RESPONSIBILITIES It is important to know exactly how much and how often to take the opioid pain medications you are prescribed. Never take opioids in higher amounts or more often than prescribed. Do not combine opioids with alcohol or other drugs that cause drowsiness, such as benzodiazepines, also known as benzos, including diazepam and alprazolam, muscle relaxants or sleep aids. Never sell or share prescription opioids. This is illegal. Store opioids in a secure place and out of reach of others (including children, family, friends and visitors). The last page of this document has been signed and retained as a CHART COPY. Signatures Patient Education Materials [facility] Post-op Instruction 02/2017 (09876) Medication Leaflets My discharge plan and instructions have been reviewed and explained to me and I,RADHA SAUCEDO understand my current condition and have read and understand these discharge instructions. I have received a written copy of the plan/instructions. If I have questions, I am aware that I should contact my doctor. Patient/Yarn Comber Signature: Date/Time: Relationship to Patient: Witness Name/Signature: Date/Time: [facility] Lakia Naranjo 12-15-2022 Note Date of Service December 15, 2022 Subjective The patient was sitting in bedside chair upon examination. Patient denies any chest pain, shortness of breath, dizziness, lightheadedness, nausea or vomiting, or calf pain. Patient yesterday nursing discovered she had slurred speech and facial droop. Rapid response was called and CT scan of the brain was performed. No intracranial hemorrhage or mass was appreciated. Medicine is currently involved and currently has several tests ordered for today including MRI and echocardiogram. Patient was alert to her own name and date of as well as her 's name. She did recognize me. However she did not know why she was in the hospital. She complains of no left hip pain. Narcotic medications were discontinued. She denies any current numbness and tingling in all 4 extremities. Nursing states overnight patient was confused and at times combative. She refused lab work this morning. She is constantly getting up with her seat alarm going off and not calling with the nurse button. Objective Vitals and Measurements T: 36.6 C (Oral) TMIN: 36.1 C (Temporal Artery) TMAX: 36.9 C (Axillary) HR: 64 RR: 16 BP: 106/67 SpO2: 95% HT: 165.1 cm WT: 70 kg BMI: 25.68 Intake and Output 7AM Yesterday to 7AM Today Intake and Output (Last 24 hours) Intake Administration Information 1181.18 Oral Intake 910.00 Supplement Intake 0.00 Output Intra-Op EBL 200.00 Stool Count 0.00 Urine Count 4.00 Total Summary Total Intake 2091.18 Total Output 200.00 Fluid Balance 1891.18 Physical Exam Vital signs stable, afebrile Left hip is soft and supple MIRA hose are in place bilaterally Patient is able to plantarflex and dorsiflex actively Sensation is intact to saphenous, sural, superficial and deep peroneal, and tibial distribution Dressing is clean dry and intact Negative signs and symptoms of DVT, negative Homans bilaterally Sensation was intact to light touch to axillary, radial, median, ulnar distribution. There was no appreciable facial droop with smiling but minimal at rest on the left. No slurred speech today. She had equal and good range of motion of bilateral upper extremities. 5/5 strength bilateral upper extremities. Weight Dosing Weight: 70 kg (12/14/22) Dosing Weight: 70 kg (12/14/22) Medications Medications (21) Active Scheduled: (14) acetaminophen 500 mg Tablet 1,000 mg 2 tab(s), Oral, q6h aspirin 81 mg EC 81 mg 1 tab(s), Oral, BIDM atenolol 50 mg tablet 50 mg 1 tab(s), Oral, qDay atorvastatin 10 mg tablet 20 mg 2 tab(s), Oral, qDay bisacodyl 5 mg EC tablet 10 mg 2 tab(s), Oral, Once docusate sodium 100 mg Capsule 100 mg 1 cap(s), Oral, BID docusate-senna (Senokot S) 50 mg-8.6 mg Tablet 2 tab(s), Oral, BID famotidine 20 mg tablet 20 mg 1 tab(s), Oral, qDay indapamide 2.5 mg Tablet 1.25 mg 0.5 tab(s), Oral, qDay losartan 50 mg tablet 50 mg 1 tab(s), Oral, qDay magnesium hydroxide 8% Suspension 30 mL UD 30 mL, Oral, Daily meloxicam 7.5 mg tablet 7.5 mg 1 tab(s), Oral, BIDM multivitamin (Myadec) with minerals Therapeutic Multiple Vitamins with Minerals Tablet 1 tab(s), Oral, qDayM potassium chloride 20 mEq ER tablet 20 mEq 1 tab(s), Oral, BID Continuous: (0) PRN: (7) acetaminophen 325 mg Tablet 650 mg 2 tab(s), Oral, q4h diphenhydramine 25 mg tablet 25 mg 1 tab(s), Oral, q6h diphenhyDRAMINE 50 mg/mL (1 mL) INJ 25 mg 0.5 mL, IV Push, q6h ketorolac 30 mg/mL (1 mL) vial 15 mg 0.5 mL, IV Push, q6h ondansetron 2 mg/ 1 mL 2 mL INJ 4 mg 2 mL, IV Push, q8h prochlorperazine 10 mg/2 mL vial 5 mg 1 mL, IV Push, q6h sodium biphosphate-sodium phosphate 19 gm-7 gm Enema 133 mL, Rectal, qDay Lab Results 12/15 07:04 WBC: 14.8 H Hgb: 10.7 L Hct: 31.4 L Platelet: 228 Neutrophil %: 84.2 H Glucose Level: 145 H Sodium Level: 134 L Potassium Level: 4.0 BUN: 19 H Creatinine Lvl (s): 0.80 12/14 18:48 Glucose Level: 217 H Sodium Level: 138 Potassium Level: 3.4 L BUN: 14 Creatinine Lvl (s): 0.98 EKG Electrocardiogram [AOH] (EKG [AOH]) - InProcess -- 12/14/22 19:01:00 EDT, 12/14/22 19:01:00 EDT Assessment/Plan Transient ischemic attack 1. Status post direct anterior left total hip arthroplasty postop day #1 2. Continue pain medications: Continue primarily with Tylenol and meloxicam. Case was discussed with medicine and they are okay with us continuing the meloxicam at this point. We will hold off of any other narcotic pain medications. Her pain has been well controlled. 3. DVT prophylaxis: Take 81 mg aspirin twice daily with food for 4 weeks postoperatively for DVT prophylaxis. Patient denies past history of DVT or pulmonary embolism 4. Physical therapy: Weightbearing as tolerated with walker. 5. H & H: 10.7/31.4, asymptomatic. Postoperative anemia secondary to acute blood loss from surgery without intraoperative complications. 6. Reactive leukocytosis: Currently 14.8, afebrile. Patient did receive Decadron intraoperatively 7. Postoperative confusion: Case was discussed with medicine. She is currently in stroke work-up. Patient's was also present this morning and long discussion occurred today. Patient had similar instance with her previous total shoulder arthroplasty by Elias Penaloza in July 2019. She did have postoperative confusion at that time and she was discharged home on postoperative day #1. Patient's states that it took approximately 48 hours and her symptoms resolved. He denies any recent symptoms at home with memory loss or confusion. Patient is also willing to take her home if medically stable. I do feel if her stroke work-up is negative and medically cleared may be more beneficial to have patient in her own home environment. Patient's reports her previous total hip arthroplasty in 2014 she had no postoperative complications with confusion. Would recommend continued follow with her primary care physician postoperatively upon discharge 8. Encouraged incentive spirometry 9. Continue postoperative medical management per medicine: Case was discussed with medicine. 10. Disposition: At this time discharge planning will be determined with medicine work-up. Patient's pain medications and DVT prophylaxis were discussed with the today. We will attempt to use only Tylenol and meloxicam as long as medicine is okay with the nonsteroidal anti-inflammatory. Would hold off of any narcotics if we can manage this. Patient is doing well this morning with no complaints with the left hip today. Again discharge will be based on medicine findings with testing. Patient's is willing to manage his at home as he did this before in 2019 after the total shoulder replacement. She does appear to be in better state with her at bedside. Also discussed case with social sciences research scientist and at this time patient will require follow-up when appropriate for discharge with her primary care physician. Discussed with Dr. Elias Penaloza. I have reviewed the [place] Automated Rx Reporting System (OARRS) report for this patient for refill pattern and other prescriber involvement as part of the appropriate surveillance for the provision of acute and chronic controlled medications. The report was requested and reviewed on the date of this entry, and was considered in the prescribing process This dictation was created using voice recognition software. Phonetic and/or grammatical errors may exist. Digitally Signed by VANITA MEHTA PA-C on 12/15/2022 08:16 AM [facility] 12-15-2022 Note ORIGINAL EXAMINATION: MRI OF THE BRAIN WITHOUT CONTRAST 12/15/2022 9:58 am TECHNIQUE: Multiplanar multisequence MRI of the brain was performed without the administration of intravenous contrast. COMPARISON: 12/14/2022, earlier HISTORY: ORDERING SYSTEM PROVIDED HISTORY: Reason for Exam: TIA FINDINGS: Motion artifacts obscure some details. INTRACRANIAL STRUCTURES/VENTRICLES: No abnormal parenchymal restricted diffusion or susceptibility. No mass effect or midline shift. No evidence of an acute intracranial hemorrhage. Scattered and patchy subcortical, periventricular, and pontine white matter FLAIR hyperintensities are nonspecific but statistically most consistent with [id number] chronic microvascular angiopathy. Scattered prominent perivascular spaces. Stable ventricular size and morphology. The sellar/suprasellar regions appear unremarkable. The normal signal voids within the major intracranial vessels appear maintained. ORBITS: Bilateral ocular lens implants are present. SINUSES: Completely opacified and restricting left maxillary sinus. Mild left mastoid opacification BONES/SOFT TISSUES: The bone marrow signal intensity appears normal. The soft tissues demonstrate no acute abnormality. IMPRESSION: No acute intracranial abnormality. Chronic microvascular angiopathy. Completely opacified, restricting left maxillary sinus is suspicious for acute sinusitis. RECOMMENDATIONS: Unavailable Interpreted by: Randy Borges DO Preliminary Report By: Randy Borges DO Electronically signed By Randy Borges DO Dictated Date: 12/15/2022 12:21:51 PM Prelim Date: 12/15/2022 12:27:03 PM Sign Date: 12/15/2022 12:27:03 PM Ordering Provider: REHAN ALEMAN [facility] 12-15-2022 Hospital Discharg e instructions Patient Education 12/15/2022 08:14:55 5 - [facility] Post-op Instruction 02/2017 (10927) [facility] Post-operative Instructions PLEASE FOLLOW [facility] POST-OP INSTRUCTIONS GIVEN WATCH FOR SIGNS OF INFECTION: call the office ([phone]) if experencing any of the following: (Usually appears 36-48 hours after surgery) Increased temperature (101 degrees Fahrenheit or higher) Redness or swelling Increased uncontrolled pain Foul odor or drainage Calf discomfort Significant swelling Or if having any chest pain, shortness of breath, or difficulty breathing or swallowing call the office or go the nearest Emergency Room. If you have any questions, please call your doctor at the number listed on your follow up instructions. Form: 338A ([id number]) R: 11/21 Follow Up Care 11/11/2022 13:19:04 With:HUI DOCKERY DO Address: [address], [place] [address]- When:3-5 days Comments:I left a message at PCP's office requesting they call pt to schedule a Follow up appt. With:[facility] Address: [address] [place] [phone] When:12/17/2022 13:00:00 Comments:This is your first physical therapy appointment. Follow-up as scheduled. With:VANITA MEHTA PA-C, Orthopedic Address: [facility] [address], [place] [address]- When:12/27/2022 13:30:00 Comments:This is your post-op appointment. Follow-up as scheduled. [facility] 12-15-2022 Note ORIGINAL EXAMINATION: MRI OF THE BRAIN WITHOUT CONTRAST 12/15/2022 9:58 am TECHNIQUE: Multiplanar multisequence MRI of the brain was performed without the administration of intravenous contrast. COMPARISON: 12/14/2022, earlier HISTORY: ORDERING SYSTEM PROVIDED HISTORY: Reason for Exam: TIA FINDINGS: Motion artifacts obscure some details. INTRACRANIAL STRUCTURES/VENTRICLES: No abnormal parenchymal restricted diffusion or susceptibility. No mass effect or midline shift. No evidence of an acute intracranial hemorrhage. Scattered and patchy subcortical, periventricular, and pontine white matter FLAIR hyperintensities are nonspecific but statistically most consistent with [id number]-ya-[id number] chronic microvascular angiopathy. Scattered prominent perivascular spaces. Stable ventricular size and morphology. The sellar/suprasellar regions appear unremarkable. The normal signal voids within the major intracranial vessels appear maintained. ORBITS: Bilateral ocular lens implants are present. SINUSES: Completely opacified and restricting left maxillary sinus. Mild left mastoid opacification BONES/SOFT TISSUES: The bone marrow signal intensity appears normal. The soft tissues demonstrate no acute abnormality. IMPRESSION: No acute intracranial abnormality. Chronic microvascular angiopathy. Completely opacified, restricting left maxillary sinus is suspicious for acute sinusitis. RECOMMENDATIONS: Unavailable Interpreted by: Randy Borges DO Preliminary Report By: Randy Borges DO Electronically signed By Randy Borges DO Dictated Date: 12/15/2022 12:21:51 PM Prelim Date: 12/15/2022 12:27:03 PM Sign Date: 12/15/2022 12:27:03 PM Ordering Provider: REHAN ALEMAN [facility] 12-15-2022 Note Date of Service December 15, 2022 Subjective The patient was sitting in bedside chair upon examination. Patient denies any chest pain, shortness of breath, dizziness, lightheadedness, nausea or vomiting, or calf pain. Patient yesterday nursing discovered she had slurred speech and facial droop. Rapid response was called and CT scan of the brain was performed. No intracranial hemorrhage or mass was appreciated. Medicine is currently involved and currently has several tests ordered for today including MRI and echocardiogram. Patient was alert to her own name and date of as well as her 's name. She did recognize me. However she did not know why she was in the hospital. She complains of no left hip pain. Narcotic medications were discontinued. She denies any current numbness and tingling in all 4 extremities. Nursing states overnight patient was confused and at times combative. She refused lab work this morning. She is constantly getting up with her seat alarm going off and not calling with the nurse button. Objective Vitals and Measurements T: 36.6 C (Oral) TMIN: 36.1 C (Temporal Artery) TMAX: 36.9 C (Axillary) HR: 64 RR: 16 BP: 106/67 SpO2: 95% HT: 165.1 cm WT: 70 kg BMI: 25.68 Intake and Output 7AM Yesterday to 7AM Today Intake and Output (Last 24 hours) Intake Administration Information 1181.18 Oral Intake 910.00 Supplement Intake 0.00 Output Intra-Op EBL 200.00 Stool Count 0.00 Urine Count 4.00 Total Summary Total Intake 2091.18 Total Output 200.00 Fluid Balance 1891.18 Physical Exam Vital signs stable, afebrile Left hip is soft and supple MIRA hose are in place bilaterally Patient is able to plantarflex and dorsiflex actively Sensation is intact to saphenous, sural, superficial and deep peroneal, and tibial distribution Dressing is clean dry and intact Negative signs and symptoms of DVT, negative Homans bilaterally Sensation was intact to light touch to axillary, radial, median, ulnar distribution. There was no appreciable facial droop with smiling but minimal at rest on the left. No slurred speech today. She had equal and good range of motion of bilateral upper extremities. 5/5 strength bilateral upper extremities. Weight Dosing Weight: 70 kg (12/14/22) Dosing Weight: 70 kg (12/14/22) Medications Medications (21) Active Scheduled: (14) acetaminophen 500 mg Tablet 1,000 mg 2 tab(s), Oral, q6h aspirin 81 mg EC 81 mg 1 tab(s), Oral, BIDM atenolol 50 mg tablet 50 mg 1 tab(s), Oral, qDay atorvastatin 10 mg tablet 20 mg 2 tab(s), Oral, qDay bisacodyl 5 mg EC tablet 10 mg 2 tab(s), Oral, Once docusate sodium 100 mg Capsule 100 mg 1 cap(s), Oral, BID docusate-senna (Senokot S) 50 mg-8.6 mg Tablet 2 tab(s), Oral, BID famotidine 20 mg tablet 20 mg 1 tab(s), Oral, qDay indapamide 2.5 mg Tablet 1.25 mg 0.5 tab(s), Oral, qDay losartan 50 mg tablet 50 mg 1 tab(s), Oral, qDay magnesium hydroxide 8% Suspension 30 mL UD 30 mL, Oral, Daily meloxicam 7.5 mg tablet 7.5 mg 1 tab(s), Oral, BIDM multivitamin (Myadec) with minerals Therapeutic Multiple Vitamins with Minerals Tablet 1 tab(s), Oral, qDayM potassium chloride 20 mEq ER tablet 20 mEq 1 tab(s), Oral, BID Continuous: (0) PRN: (7) acetaminophen 325 mg Tablet 650 mg 2 tab(s), Oral, q4h diphenhydramine 25 mg tablet 25 mg 1 tab(s), Oral, q6h diphenhyDRAMINE 50 mg/mL (1 mL) INJ 25 mg 0.5 mL, IV Push, q6h ketorolac 30 mg/mL (1 mL) vial 15 mg 0.5 mL, IV Push, q6h ondansetron 2 mg/ 1 mL 2 mL INJ 4 mg 2 mL, IV Push, q8h prochlorperazine 10 mg/2 mL vial 5 mg 1 mL, IV Push, q6h sodium biphosphate-sodium phosphate 19 gm-7 gm Enema 133 mL, Rectal, qDay Lab Results 12/15 07:04 WBC: 14.8 H Hgb: 10.7 L Hct: 31.4 L Platelet: 228 Neutrophil %: 84.2 H Glucose Level: 145 H Sodium Level: 134 L Potassium Level: 4.0 BUN: 19 H Creatinine Lvl (s): 0.80 12/14 18:48 Glucose Level: 217 H Sodium Level: 138 Potassium Level: 3.4 L BUN: 14 Creatinine Lvl (s): 0.98 EKG Electrocardiogram [AOH] (EKG [AOH]) - InProcess -- 12/14/22 19:01:00 EDT, 12/14/22 19:01:00 EDT Assessment/Plan Transient ischemic attack 1. Status post direct anterior left total hip arthroplasty postop day #1 2. Continue pain medications: Continue primarily with Tylenol and meloxicam. Case was discussed with medicine and they are okay with us continuing the meloxicam at this point. We will hold off of any other narcotic pain medications. Her pain has been well controlled. 3. DVT prophylaxis: Take 81 mg aspirin twice daily with food for 4 weeks postoperatively for DVT prophylaxis. Patient denies past history of DVT or pulmonary embolism 4. Physical therapy: Weightbearing as tolerated with walker. 5. H & H: 10.7/31.4, asymptomatic. Postoperative anemia secondary to acute blood loss from surgery without intraoperative complications. 6. Reactive leukocytosis: Currently 14.8, afebrile. Patient did receive Decadron intraoperatively 7. Postoperative confusion: Case was discussed with medicine. She is currently in stroke work-up. Patient's was also present this morning and long discussion occurred today. Patient had similar instance with her previous total shoulder arthroplasty by Elias Penaloza in July 2019. She did have postoperative confusion at that time and she was discharged home on postoperative day #1. Patient's states that it took approximately 48 hours and her symptoms resolved. He denies any recent symptoms at home with memory loss or confusion. Patient is also willing to take her home if medically stable. I do feel if her stroke work-up is negative and medically cleared may be more beneficial to have patient in her own home environment. Patient's reports her previous total hip arthroplasty in 2014 she had no postoperative complications with confusion. Would recommend continued follow with her primary care physician postoperatively upon discharge 8. Encouraged incentive spirometry 9. Continue postoperative medical management per medicine: Case was discussed with medicine. 10. Disposition: At this time discharge planning will be determined with medicine work-up. Patient's pain medications and DVT prophylaxis were discussed with the today. We will attempt to use only Tylenol and meloxicam as long as medicine is okay with the nonsteroidal anti-inflammatory. Would hold off of any narcotics if we can manage this. Patient is doing well this morning with no complaints with the left hip today. Again discharge will be based on medicine findings with testing. Patient's is willing to manage his at home as he did this before in 2019 after the total shoulder replacement. She does appear to be in better state with her at bedside. Also discussed case with social sciences research scientist and at this time patient will require follow-up when appropriate for discharge with her primary care physician. Discussed with Dr. Elias Penaloza. I have reviewed the [place] Automated Rx Reporting System (OARRS) report for this patient for refill pattern and other prescriber involvement as part of the appropriate surveillance for the provision of acute and chronic controlled medications. The report was requested and reviewed on the date of this entry, and was considered in the prescribing process This dictation was created using voice recognition software. Phonetic and/or grammatical errors may exist. Digitally Signed by VANITA MEHTA PA-C on 12/15/2022 08:16 AM [facility] 12-15-2022 Nurse Progress note At about 3AM, patient started to become very agitated, insisting that she needs to go home and asking to call her and have him come get me . Patient was setting off bed alarm frequently attempting to get up. Patient was found trying to get out of bed on her left side and bending hips more than 90 degrees. Patient refused her morning dose of IV antibiotics stating that she will take them at home . Attempts by staff to calm her down were unsuccessful. Nurse called patient's and let her talk to him in an attempt to calm her down. This too was unsuccessful. Nurse called [facility] and obtained a one time dose of IV Haldol. Patient was combative during administration, but the medication was given successfully. Will continue to monitor for safety. Digitally Signed by Stacey Hughes RN on 12/15/2022 05:08 AM [facility] 12-15-2022 Nurse Progress note At about 3AM, patient started to become very agitated, insisting that she needs to go home and asking to call her and have him come get me . Patient was setting off bed alarm frequently attempting to get up. Patient was found trying to get out of bed on her left side and bending hips more than 90 degrees. Patient refused her morning dose of IV antibiotics stating that she will take them at home . Attempts by staff to calm her down were unsuccessful. Nurse called patient's and let her talk to him in an attempt to calm her down. This too was unsuccessful. Nurse called Marycruz Swisher [employer] and obtained a one time dose of IV Haldol. Patient was combative during administration, but the medication was given successfully. Will continue to monitor for safety. Digitally Signed by Stacey Hughes RN on 12/15/2022 05:08 AM [facility] 12-14-2022 Note ORIGINAL EXAMINATION: CT OF THE HEAD WITHOUT CONTRAST 12/14/2022 7:15 pm TECHNIQUE: CT of the head was performed without the administration of intravenous contrast. Automated exposure control, iterative reconstruction, and/or weight based adjustment of the mA/kV was utilized to reduce the radiation dose to as low as reasonably achievable. COMPARISON: CT head May 25, 2021 HISTORY: ORDERING SYSTEM PROVIDED HISTORY: Reason for Exam: left facial droop FINDINGS: BRAIN/VENTRICLES: There is no acute intracranial hemorrhage, mass or midline shift. No abnormal extra-axial fluid collection. The escobar-white differentiation is maintained without evidence of an acute infarct. Ventricles and sulci are age-appropriate. Scattered periventricular and subcortical white matter hypodensities are seen which are not non-specific but are likely related to chronic small vessel ischemic changes, not significantly altered from 2020. Atherosclerotic calcifications are identified within the intracranial vasculature. ORBITS: The visualized portion of the orbits demonstrate no acute abnormality. SINUSES: Probable chronic complete opacification of the left maxillary sinus with associated left maxillary sinus wall thickening. The visualized paranasal sinuses and mastoid air cells are otherwise well aerated. SOFT TISSUES/SKULL: No acute abnormality of the visualized skull or soft tissues. IMPRESSION: No acute intracranial hemorrhage or large territorial infarct. Interpreted by: Rosalinda Conrad MD Preliminary Report By: Rosalinda Conrad MD Electronically signed By Rosalinda Conrad MD Dictated Date: 12/14/2022 8:02:41 PM Prelim Date: 12/14/2022 8:07:43 PM Sign Date: 12/14/2022 8:07:43 PM Ordering Provider: ARELI CHISHOLM [facility] 12-14-2022 Nurse Progress note spouse, Antonio updated on patients condition change at this time Digitally Signed by Sara Conrad RN on 12/14/2022 07:25 PM [facility] 12-14-2022 Note ORIGINAL EXAMINATION: CT OF THE HEAD WITHOUT CONTRAST 12/14/2022 7:15 pm TECHNIQUE: CT of the head was performed without the administration of intravenous contrast. Automated exposure control, iterative reconstruction, and/or weight based adjustment of the mA/kV was utilized to reduce the radiation dose to as low as reasonably achievable. COMPARISON: CT head May 25, 2021 HISTORY: ORDERING SYSTEM PROVIDED HISTORY: Reason for Exam: left facial droop FINDINGS: BRAIN/VENTRICLES: There is no acute intracranial hemorrhage, mass or midline shift. No abnormal extra-axial fluid collection. The escobar-white differentiation is maintained without evidence of an acute infarct. Ventricles and sulci are age-appropriate. Scattered periventricular and subcortical white matter hypodensities are seen which are not non-specific but are likely related to chronic small vessel ischemic changes, not significantly altered from 2020. Atherosclerotic calcifications are identified within the intracranial vasculature. ORBITS: The visualized portion of the orbits demonstrate no acute abnormality. SINUSES: Probable chronic complete opacification of the left maxillary sinus with associated left maxillary sinus wall thickening. The visualized paranasal sinuses and mastoid air cells are otherwise well aerated. SOFT TISSUES/SKULL: No acute abnormality of the visualized skull or soft tissues. IMPRESSION: No acute intracranial hemorrhage or large territorial infarct. Interpreted by: Rosalinda Conrad MD Preliminary Report By: Rosalinda Conrad MD Electronically signed By Rosalinda Conrad MD Dictated Date: 12/14/2022 8:02:41 PM Prelim Date: 12/14/2022 8:07:43 PM Sign Date: 12/14/2022 8:07:43 PM Ordering Provider: ARELI CHISHOLM [facility] 12-14-2022 Note ORIGINAL Images acquired, not reported on this accession number. [facility] 12-14-2022 Note ORIGINAL Images acquired, not reported on this accession number. [facility] 12-14-2022 Note ORIGINAL HISTORY: Arthroplasty COMPARISON: No FINDINGS: There is a left arthroplasty in near anatomic alignment. There is no radiographic evidence of loosening or failure of hardware. There is gas in the soft tissues. There is a right arthroplasty. IMPRESSION: Left arthroplasty with immediate postoperative changes. More remote right arthroplasty. Interpreted by: Paramjit Meraz MD Preliminary Report By: Paramjit Meraz MD Electronically signed By Paramjit Meraz MD Dictated Date: 12/14/2022 1:53:55 PM Prelim Date: 12/14/2022 1:54:48 PM Sign Date: 12/14/2022 1:54:48 PM Ordering Provider: [facility] 12-14-2022 Note ORIGINAL HISTORY: Arthroplasty COMPARISON: No FINDINGS: There is a left arthroplasty in near anatomic alignment. There is no radiographic evidence of loosening or failure of hardware. There is gas in the soft tissues. There is a right arthroplasty. IMPRESSION: Left arthroplasty with immediate postoperative changes. More remote right arthroplasty. Interpreted by: Paramjit Meraz MD Preliminary Report By: Paramjit Meraz MD Electronically signed By Paramjit Meraz MD Dictated Date: 12/14/2022 1:53:55 PM Prelim Date: 12/14/2022 1:54:48 PM Sign Date: 12/14/2022 1:54:48 PM Ordering Provider: [facility] 12-14-2022 Anesthesiology Consult note Patient: RADHA SAUCEDO Age: 82 years Sex: Female : 1940 Associated Diagnoses: None Author: VIKTOR ADAMES Preoperative Information Time of last food or liquid consumption: 12/14/2022 00:00:00 Anesthesia history Patient's history: negative. Family's history: negative. Review of Systems Ear/Nose/Mouth/Throat: Negative. Respiratory: Negative. Cardiovascular: htn. Gastrointestinal: Negative. Genitourinary: Urinary incontinence. Endocrine: Negative. Musculoskeletal: Negative. Integumentary: Negative. Neurologic: Negative. Health Status Allergies: Nonallergic Reactions (Selected) Severity Not Documented Amoxicillin- Abdominal pain. Penicillin- Abdominal pain., Allergies (2) ActiveReaction amoxicillinAbdominal pain penicillinABDOMINAL PAIN Current medications: (Selected) Inpatient Medications Ordered Betadine 10% topical solution: 17.5 mL, mL/hr, Topical (INT), PREOP pharm LR 1,000 mL: 125 mL/hr, Intravenous, Stop: 12/14/22 23:59:00 EDT LR 1000 mL: 20 mL/hr, Intravenous Naropin 100 mg + Toradol 15 mg + EPINEPHrine 1 mg/mL injectable solution 0.3 mg + morphine 2.5 mg...: 100 mg, 20 mL, mL/hr, Other, PREOP pharm Naropin 100 mg + Toradol 15 mg + EPINEPHrine 1 mg/mL injectable solution 0.3 mg + morphine 2.5 mg...: 100 mg, 20 mL, mL/hr, Other, PREOP pharm Zofran ( PACU ): 4 mg, 2 mL, IV Push, AsDirected, PRN: Nausea/Vomiting morphine ( PACU ): 2 mg, 1 mL, IV Push, q5min, PRN: Pain, scale 4-6 tranexamic acid 1 g / 100 mL 0.7% NaCl PMX: 1 gram(s), 100 mL, 300 mL/hr, IV Piggyback, AsDirected Documented Medications Documented Vitamin D3: 2,000 unit(s), 1 tab(s), Oral, Daily, 0 Refill(s) atenolol 50 mg oral tablet: 50 mg, 1 tab(s), Oral, qDay, 0 Refill(s) atorvastatin 20 mg oral tablet: 20 mg, 1 tab(s), Oral, qDay, 0 Refill(s) calcium (as citrate)-vitamin D 315 mg-250 intl units (6. 25 mcg) oral tablet: 2 tab(s), Oral, BID, 120 tab(s), 0 Refill(s) indapamide 1.25 mg oral tablet: 1.25 mg, 1 tab(s), Oral, qDay, 0 Refill(s) irbesartan 150 mg oral tablet: 150 mg, 1 tab(s), Oral, Daily, 0 Refill(s) potassium chloride 20 mEq oral tablet, extended release: 20 mEq, 1 tab(s), Oral, BID, 0 Refill(s), Medications (8) Active Scheduled: (4) povidone iodine topical 17.5 mL, Topical (INT), PREOP pharm ropivacaine 100 mg + ketorolac 15 mg + epinephrine 0.3 mg + morphine 2.5 mg 100 mg 20 mL, Other, PREOP pharm ropivacaine 100 mg + ketorolac 15 mg + epinephrine 0.3 mg + morphine 2.5 mg 100 mg 20 mL, Other, PREOP pharm tranexamic acid PMX 1 gram(s) 100 mL, IV Piggyback, AsDirected Continuous: (2) Lactated Ringers 1,000 mL 1,000 mL, Intravenous, 125 mL/hr Lactated Ringers Infusion 1000 mL 1,000 mL, Intravenous, 20 mL/hr PRN: (2) morphine 2 mg/mL 1 mL syringe 2 mg 1 mL, IV Push, q5min ondansetron 2 mg/ 1 mL 2 mL INJ 4 mg 2 mL, IV Push, AsDirected Problem list: Active Problems (6) Hypercholesterolemia Hypertension Incontinent of urine Insomnia Osteoarthritis Vitamin D deficiency Histories Past Medical History: No active or resolved past medical history items have been selected or recorded. Family History: Cancer Father Sister Hypertension Mother Sister Heart disease Brother Arthritis Mother Procedure history: History of reverse prosthetic total arthroplasty of right shoulder ([id number]) on 08/14/2019 at 78 Years. Colonoscopy ([id number]) in the month of 02/2019 at 78 Years. Colonoscopy ([id number]) in the month of 11/2018 at 78 Years. Hand ([id number]) in 1985 at 45 Years. Comments: 08/07/2019 10:19 Saskia Petersen RN RIGHT HAND SURGERY Cyst ([id number]) in 1961 at 21 Years. Comments: 08/07/2019 10:18 Saskia Petersen RN COYST OF LEFT HAND Tonsillectomy ([id number]) in 1950 at 10 Years. Total hip replacement ([id number]). Comments: 08/07/2019 10:19 Saskia Petersen RN RIGHT Social History Social & Psychosocial Habits Alcohol 08/07/2019 Use: Never Substance Abuse 08/07/2019 Use: Never Tobacco 08/07/2019 Tobacco Use: Never (less than 100 in l Home/Environment 08/14/2019 Domestic Concerns None Living situation: Home/Independent Lives In 1st floor bathroom, 1st floor bedroom, Multilevel home, has a recliner in the basement with a bathroom Current Home Treatments None Special Services and Community Resources None Spouse Name Antonio Marital Status of Patient if Patient Independent Adult: Nutrition/Health 08/07/2019 Type of diet: Low fat, Regular Appetite Excellent Eating Difficulties None Caffeine intake amount: 1/2 CUP CAFFEINE DAILY . Physical Examination Vital Signs 12/14/2022 12:05 EDT Heart Rate Monitored 49 bpm bpm Respiratory Rate - Anes 13 br/min br/min Systolic Blood Pressure Non-Invasive 92 mmHg mmHg Diastolic Blood Pressure Non-Invasive 54 mmHg mmHg 12/14/2022 12:00 EDT Heart Rate Monitored 50 bpm bpm Respiratory Rate - Anes 0 br/min br/min Systolic Blood Pressure Non-Invasive 87 mmHg mmHg Diastolic Blood Pressure Non-Invasive 52 mmHg mmHg 12/14/2022 11:55 EDT Heart Rate Monitored 53 bpm bpm Respiratory Rate - Anes 0 br/min br/min Systolic Blood Pressure Non-Invasive 105 mmHg mmHg Diastolic Blood Pressure Non-Invasive 56 mmHg mmHg 12/14/2022 11:50 EDT Heart Rate Monitored 58 bpm bpm Respiratory Rate - Anes 0 br/min br/min Systolic Blood Pressure Non-Invasive 132 mmHg mmHg Diastolic Blood Pressure Non-Invasive 66 mmHg mmHg 12/14/2022 11:45 EDT Respiratory Rate - Anes 0 br/min br/min Systolic Blood Pressure Non-Invasive 167 mmHg mmHg Diastolic Blood Pressure Non-Invasive 81 mmHg mmHg 12/14/2022 11:41 EDT Systolic Blood Pressure Non-Invasive 168 mmHg mmHg Diastolic Blood Pressure Non-Invasive 86 mmHg mmHg 12/14/2022 9:50 EDT Temperature Temporal Artery 36.1 DegC Peripheral Pulse Rate 53 bpm LOW Respiratory Rate 18 br/min Vital Signs(last 24 hrs) Last Charted Heart Rate Ergchifnh02 bpm (DECEMBER 14 12:05) Resp Rate 18 br/min (DECEMBER 14 09:50) SBP92 mmHg (DECEMBER 14 12:05) DBP54 mmHg (DECEMBER 14 12:05) Measurements from flowsheet : Measurements 12/14/2022 9:50 EDT Height 165.1 cm Height in inches 65 inch(es) Admission Weight 70 kg Weight Lbs 154 lb Weight Method Stated [place] Body Weight 57.00 kg Admission Body Mass Index 25.68 m2 Pain assessment: Pain Assessment 12/14/2022 10:01 EDT Primary Pain Intensity Not Done: Not Appropriate at this Time (Not Done) 12/14/2022 9:50 EDT Primary Pain Intensity 0 Pain Scale Type 0-10 Pain scale . General: Alert and oriented. Airway: Normal temporomandibular joint mobility. Mallampati classification: II (soft palate, fauces, uvula visible). Head: Normocephalic. Dentition Evaluation: Dentures, upper. Neck: Supple. Respiratory: Lungs are clear to auscultation. Cardiovascular: Normal rate. Heart Sounds: Normal. Gastrointestinal: Soft. Musculoskeletal Normal range of motion. Integumentary: Intact. Neurologic: Alert, Oriented. Review / Management Results review: No qualifying data available , Lab results 12/14/2022 12:11 EDT SN - GCD - ASA Class 2 12/14/2022 12:10 EDT SN - CTm - Surgery Start 12/14/2022 12:10 12/14/2022 12:10 EDT tranexamic acid 1 gram(s) gram(s) 12/14/2022 12:08 EDT dexAMETHasone 10 mg mg dexAMETHasone 10 mg mg 12/14/2022 12:05 EDT Heart Rate Monitored 49 bpm bpm Respiratory Rate - Anes 13 br/min br/min Systolic Blood Pressure Non-Invasive 92 mmHg mmHg Diastolic Blood Pressure Non-Invasive 54 mmHg mmHg Oxygen Saturation 100 % % acetaminophen Begin Bag 100 mL mg 12/14/2022 12:00 EDT Heart Rate Monitored 50 bpm bpm Respiratory Rate - Anes 0 br/min br/min Systolic Blood Pressure Non-Invasive 87 mmHg mmHg Diastolic Blood Pressure Non-Invasive 52 mmHg mmHg Oxygen Saturation 100 % % 12/14/2022 11:57 EDT SN - Irl - Irrigant Normal Saline SN - Irl - Irrigant Normal Saline SN - Irl - Irrigant Sterile Water SN - IrI - Volume In 500 mL SN - IrI - Volume In 450 mL SN - Irl - Additive BETADINE (POVIDONE IODINE) SOLUT SN - Irl - Additive IRRIGATION CHG 0.05% IRRISEPT 12/ [id number] SN - IrI - Volume Out 500 mL SN - IrI - Volume Out 450 mL 12/14/2022 11:55 EDT SN - Preop - CTm Pt in SDS Room 12/14/2022 9:43 SN - Preop - CTm Pt Ready for OR/Proced 12/14/2022 10:19 12/14/2022 11:55 EDT Heart Rate Monitored 53 bpm bpm Respiratory Rate - Anes 0 br/min br/min Systolic Blood Pressure Non-Invasive 105 mmHg mmHg Diastolic Blood Pressure Non-Invasive 56 mmHg mmHg Oxygen Saturation 95 % % 12/14/2022 11:50 EDT Heart Rate Monitored 58 bpm bpm Respiratory Rate - Anes 0 br/min br/min Systolic Blood Pressure Non-Invasive 132 mmHg mmHg Diastolic Blood Pressure Non-Invasive 66 mmHg mmHg Oxygen Saturation 92 % % 12/14/2022 11:49 EDT bupivacaine 1.6 mL mL 12/14/2022 11:45 EDT Respiratory Rate - Anes 0 br/min br/min Systolic Blood Pressure Non-Invasive 167 mmHg mmHg Diastolic Blood Pressure Non-Invasive 81 mmHg mmHg 12/14/2022 11:41 EDT Systolic Blood Pressure Non-Invasive 168 mmHg mmHg Diastolic Blood Pressure Non-Invasive 86 mmHg mmHg 12/14/2022 11:39 EDT SN - CTm - Anesthesia Start Time Anesthesia Start cefazolin 2 gram(s) gram(s) Sodium Chloride 0.9% 100 mL mL 12/14/2022 11:30 EDT SN - Assess - LOC Alert, Awake SN - Assess - Orientation Oriented X 3 SN - Assess - Post-op Skin Integrity Intact/Dry 12/14/2022 11:30 EDT SN - CAt - Case Attendee SN - CAt - Case Attendee SN - CAt - Case Attendee SN - CAt - Case Attendee SN - CAt - Case Attendee SN - CAt - Case Attendee SN - CAt - Case Attendee SN - CAt - Case Attendee SN - CAt - Case Attendee SN - CAt - Case Attendee SN - CAt - Case Attendee SN - CAt - Case Attendee SN - CAt - Case Attendee SN - CAt - Case Attendee SN - CAt - Case Attendee SN - CAt - Case Attendee SN - CAt - Role Performed Physician Product Strategy Director SN - CAt - Role Performed FAMILY CONSUMER SCIENTIST SN - CAt - Role Performed Laboratory Assistant 1 SN - CAt - Role Performed Laboratory Assistant 2 SN - CAt - Role Performed Scrub 1 SN - CAt - Role Performed Engineer Internship 1 SN - CAt - Role Performed Testing Coordinator SN - CAt - Role Performed Dental Insurance Biller 12/14/2022 11:27 EDT SN - GCD - Post-operative Diagnosis UNILATERAL PRIMARY OSTEOARTHRITIS LEFT HIP SN - GCD - Case Level Level 5 12/14/2022 11:27 EDT SN - Cul - Culture Type No Specimen per Surgeon 12/14/2022 11:26 EDT SN - CAt - Case Attendee SN - CAt - Case Attendee SN - CAt - Role Performed Primary Surgeon 12/14/2022 10:10 EDT celecoxib 400 mg mg famotidine 20 mg mg Lactated Ringers Injection 1,000 mL mL 12/14/2022 10:01 EDT Primary Pain Intensity Not Done: Not Appropriate at this Time (Not Done) citric acid-sodium citrate Not Done: Not Appropriate at this Time (Not Done) oxyCODONE Not Done: Not Appropriate at this Time (Not Done) 12/14/2022 9:51 EDT ABO/Rh Interp O POS Antibody Screen Gel Negative ABSC 12/14/2022 9:50 EDT Height 165.1 cm Height in inches 65 inch(es) Admission Weight 70 kg Weight Lbs 154 lb Weight Method Stated [place] Body Weight 57.00 kg Admission Body Mass Index 25.68 m2 Temperature Temporal Artery 36.1 DegC Peripheral Pulse Rate 53 bpm LOW Respiratory Rate 18 br/min Primary Pain Intensity 0 Pain Scale Type 0-10 Pain scale Monitor Alarms On and Limits Checked Heart Sounds ICU S1S2 Heart Rhythm Regular Oxygen Therapy Room air Oxygen Saturation 99 % Abdomen Description Non-distended, Symmetric, Soft Abdomen Palpation Non-Tender, Soft Urinary Elimination Voiding, no difficulties Skin Temperature Warm Skin Description [place] Skin Integrity Intact IV Present Present Wrist Right 12/14/2022 20 gauge Peripheral IV Activity: Insert new site Peripheral IV Dressing Condition: Clean, Dry, Intact Peripheral IV Dressing Activity: Transparent dressing Peripheral IV Line Status/Patency: Flushes easily Peripheral IV Line Care: Secured with tape Peripheral IV Site Condition: No complications Peripheral IV Equipment: Extension set, PRN Adaptor Peripheral IV Number of Attempts: 1 Extremity Movement Equal Characteristics of Speech Clear Level of Consciousness Alert KAYLENE Yes Strength All Extremities Strong Tone All Extremities Normal Sensation All Extremities Intact Affect/Behavior Appropriate, Calm, Cooperative Orientation Oriented x 4 Allergies Yes Brim Greaser Operator On Yes Consent Form Signed Yes Patient Dressed In Hospital gown, No undergarments Pre-op Preparation Jewelry removed CHG Preoperative Wash/Wipe Night before procedure, Day of procedure Preop Nasal Swab Povidone-Iodine CHG Skin Prep Completed for Eligible Surgery History & Physical Update On Chart Yes History & Physical On Chart Yes Obstructive Sleep Apnea Assess Completed Yes Orientation Assessment Oriented x 4 Activity Status ADL Awake Assistive Device None NPO Status Maintained Standard Safety ID band on, Allergy Band on, Call device within reach, Bed in low position, Wheels locked, Upper/Half-Length side-rails up, Safety level maintained, Non-Slip footwear Demonstrates Correct Call Light Use Yes Allergy Band on and Verified Yes Blood Band on and Verified Yes Patient ID Band on and Verified Yes Implants Verified Yes Pacemaker/AICD Verified Yes Anesthesia Consent Signed Yes Blood Consent Signed Yes Last Fluid Intake 12/14/2022 6:00 Last Food Intake 12/13/2022 15:00 Last Void 12/14/2022 8:00 12/14/2022 9:47 EDT Privacy Restrictions Requested None Sensory Deficits None Safety Brochure Information Reviewed Unable to complete [facility] Video Viewed No Teaching Evaluation No further teaching needed Patient's Current Physicians Patient's Current Physicians (Modified) Admission Note-Nursing Same Day Patient History (Modified) . Assessment and Plan [place] [employer] Anesthesiologists (ASA) physical status classification: Class II. Anesthetic Preoperative Plan Premedication: intravenous. Anesthetic technique: Spinal. Induction: intravenously. Maintenance airway: 40% FM. Postoperative pain management: Per surgeon. Risks discussed. Informed consent: signed by patient. Digitally Signed by VIKTOR ADAMES on 12/14/2022 12:15 PM [facility] 05-25-2021 [facility] [place] [facility] e instructions Patient Education 05/25/2021 12:22:52 Hypokalemia Hypokalemia Hypokalemia means a low level of potassium in the blood. This most often occurs in people who take water pills (diuretics). It can also occur because of severe vomiting or diarrhea. You may also have it if you take laxatives for long periods of time. It sometimes happens if you have low magnesium (hypomagnesemia). If you have this, your healthcare provider will treat the low magnesium first. A mild case of hypokalemia usually causes no symptoms. It is only found with blood testing. More severe potassium loss causes overall weakness, muscle or abdominal cramps, rapid or irregular heartbeats (heart palpitations), low blood pressure, and muscle weakness. Home care Take any potassium supplements as prescribed. Eat foods rich in potassium. The highest amount is found in avocado, baked potatoes, spinach, cantaloupe, cod, halibut, salmon, and scallops. White, red, or godoy beans are also very good sources. A modest amount of potassium is found in orange juice, bananas, carrots, and tomato juice. If you take certain types of diuretics, you will also need to take potassium supplements. If you take a diuretic, discuss potassium supplements with your doctor. Follow-up care Follow up with your healthcare provider for a repeat blood test within the next week, or as advised by our staff. When to seek medical advice Call your healthcare provider right away if any of the following occur: Increased weakness, fatigue, or muscle cramps Dizziness Call 911 Call 911 if any of the following occur: Irregular heartbeat, extra beats, or very fast heart rate Loss of consciousness [phone] The [employer]. [address] [place] [address]. All rights reserved. This information is not intended as a substitute for professional medical care. Always follow your healthcare professional's instructions. 05/25/2021 12:22:50 High-Potassium Diet Potassium-Rich Foods The normal adult diet usually contains 2,000 mg to 4,000 mg of potassium per day. More potassium is needed when you lose too much potassium from your body. This can happen if you have diarrhea or vomiting. It can also happen if you take a medicine to make you urinate more (diuretic). To increase the amount of potassium in your diet, include these high-potassium foods. [The (*) indicates foods highest in potassium.] Vegetables Artichokes. Cooked 1/2 cup, 200 mg to 300 mg* Asparagus. Cooked 1/2 cup, 200 mg to 300 mg Beans. White, red, godoy cooked 1/2 cup, 300 mg to 500 mg* Beets. Cooked 1/2 cup, 200 mg to 300 mg Broccoli. Cooked or raw 1 cup, 200 mg to 500 mg* [place] sprouts. Cooked 1/2 cup, 200 mg to 300 mg Cabbage. Raw 1 cup, 100 mg to 200 mg Carrots. Raw or cooked 1/2 cup, 100 mg to 200 mg Celery. Raw 1 cup, 200 mg to 300 mg Garay beans. Fresh or frozen 1/2 cup, 300 mg to 500 mg* Mushrooms. Raw or cooked 1/2 cup, 100 mg to 300 mg Peas. Cooked 1/2 cup, 150 mg to 250 mg Potatoes. Baked 1 medium, 500 mg to 900 mg* Spinach. Cooked 1 cup, 800 mg to 900 mg* Spinach. Raw 2 cups, 300 mg to 400 mg * Squash, winter. Fresh, frozen, or cooked 1/2 cup, 200 mg to 400 mg Tomato. Fresh 1 medium, 200 mg to 300 mg Tomato juice. Canned 1/2 cup, 200 mg to 300 mg Fruits Apple juice. Unsweetened 1 cup, 200 mg to 300 mg Apricots. Canned 1/2 cup, 200 mg to 300 mg Apricots. Dried 4 pieces, 100 mg to 200 mg Avocado. Raw 1/2 cup, 300 mg to 400 mg* Banana. Fresh 1 small, 300 mg to 400 mg* Cantaloupe. Fresh 1 cup diced, 300 mg to 400 mg* Grape juice. Unsweetened 1 cup, 200 mg to 300 mg Honeydew melon. Fresh 1 cup diced, 300 mg to 400 mg* [place]atha. Fresh 1 medium, 200 mg to 300 mg [place] juice. Unsweetened, fresh or frozen 1/2 cup, 200 mg to 300 mg Pineapple juice. Unsweetened 1 cup, 300 mg to 400 mg Prune juice. Unsweetened 1/2 cup, 300 mg to 400 mg* Prunes. Dried 5 pieces, 300 mg to 400 mg* Strawberries. Fresh or frozen 1 cup, 200 mg to 300 mg Meat Red meat. Cooked 3 ounces, 100 mg to 300 mg Seafood Cod, flounder, halibut. Cooked 3 ounces, 100 mg to 300 mg* [place]. Cooked, 3 ounces 300 mg to 400 mg* Scallops. Cooked 3 ounces, 200 mg to 300 mg* Shrimp. Cooked 3/4 cup, 100 mg to 200 mg Tuna. Fresh or canned 3/4 cup, 200 mg to 500 mg [id number] The [employer]. [address] [place] [address]. All rights reserved. This information is not intended as a substitute for professional medical care. Always follow your healthcare professional's instructions. 05/25/2021 12:16:44 High Blood Pressure, Established, Out of Control Uncontrolled High Blood Pressure (Established) Your blood pressure was unusually high today. This can occur if you ve missed doses of your blood pressure medicine. Or it can happen if you are taking other medicines. These include some asthma inhalers, decongestants, diet pills, and street drugs like cocaine and amphetamine. Other causes include: Weight gain More salt in your diet Smoking Caffeine Your blood pressure can also rise if you are emotionally upset or in intense pain. It may go back to normal after a period of rest. Blood pressure measurements are given as 2 numbers. Systolic blood pressure is the upper number. This is the pressure when the heart contracts. Diastolic blood pressure is the lower number. This is the pressure when the heart relaxes between beats. You will see your blood pressure readings written together. For example, a person with a systolic pressure of 118 and a diastolic pressure of 78 will have 118/78 written in the medical record. To be high blood pressure, the numbers must be higher when tested over a period of time. Blood pressure is categorized as normal, elevated, or stage 1 or stage 2 high blood pressure: Normal blood pressure is systolic of less than 120 and diastolic of less than 80 (120/80) Elevated blood pressure is systolic of 120 to 129 and diastolic less than 80 Stage 1 high blood pressure is systolic is 130 to 139 or diastolic between 80 to 89 Stage 2 high blood pressure is when systolic is 140 or higher or the diastolic is 90 or higher Uncontrolled high blood pressure can cause serious health problems. It raises your risk for heart attack, stroke, and heart failure. In general, if you have high blood pressure, keeping your blood pressure below 130/80 mmHg may help prevent these problems. Your healthcare provider may prescribe medicine to help control blood pressure if lifestyle changes are not enough. Home care It s important to take steps to lower your blood pressure. If you are taking blood pressure medicine, the guidelines below may help you need less or no medicines in the future. Start a weight-loss program if you are overweight. Cut back on the amount of salt in your diet: oAvoid high-salt foods like olives, pickles, smoked meats, and salted potato chips. oDon t add salt to your food at the table. oUse only small amounts of salt when cooking. Start an exercise program. Talk with your healthcare provider about what exercise program is best for you. It doesn t have to be difficult. Even brisk walking for 20 minutes 3 times a week is a good form of exercise. Avoid medicines that stimulates the heart. This includes many axet-tyi-dxnlzku cold and sinus decongestant pills and sprays, as well as diet pills. Check the warnings about high blood pressure on the label. Before purchasing any xshv-wtb-shyruxj medicines or supplements, always ask the pharmacist about the product's potential interaction with your high blood pressure and your medicines. Stimulants such as amphetamine or cocaine could be lethal for someone with high blood pressure. Never take these. Limit how much caffeine you drink. Or switch to noncaffeinated beverages. Stop smoking. If you are a long-time smoker, this can be hard. Enroll in a stop-smoking program to make it more likely that you will succeed. Talk with your provider about ways to quit. Learn how to handle stress better. This is an important part of any program to lower blood pressure. Learn ways to relax. These include meditation, yoga, and biofeedback. If medicines were prescribed, take them exactly as directed. Missing doses may cause your blood pressure to get out of control. If you miss a dose or doses of your medicines, check with your healthcare provider or pharmacist about what to do. Consider buying an automatic blood pressure machine. Your provider may recommend a certain type. You can get one of these at most pharmacies. Measure your blood pressure twice a day, in the morning, and in the late afternoon. Keep a written record of your home blood pressure readings and take the record to your medical appointments. Here are some additional guidelines on home blood pressure monitoring from the [employer]. Don't smoke or drink coffee for 30 minutes Go to the bathroom before the test. Relax for 5 minutes before taking the measurement. Sit correctly. Be sure your back is supported. Don't sit on a couch or soft chair. Uncross your feet and place them flat on the floor. Place your arm on a solid, flat surface like a table with the upper arm at heart level. Make certain the middle of the cuff is directly above the bend of the elbow. Check the monitor's instruction manual for an illustration. Take multiple readings. When you measure, take 2 or 3 readings one minute apart and record all of the results. Take your blood pressure at the same time every day, or as your healthcare provider recommends. Record the date, time, and blood pressure reading. Take the record with you to your next appointment. If your blood pressure monitor has a built-in memory, simply take the monitor with you to your next appointment. Call your provider if you have several high readings. Don't be frightened by a single high reading, but if you get several high readings, check in with your healthcare provider. Note: When blood pressure reaches a systolic (top number) of 180 or higher or a diastolic (bottom number) of 110 or higher, emergency medical treatment is required. Call your healthcare provider immediately. Follow-up care Regular visits to your own healthcare provider for blood pressure and medicine checks are an important part of your care. Make a follow-up appointment as directed. Bring the record of your home blood pressure readings to the appointment. When to seek medical advice Call your healthcare provider right away if any of these occur: Blood pressure reaches a systolic (top number) of 180 or higher or diastolic (bottom number) of 110 or higher, emergency medical treatment is required. Chest, arm, shoulder, neck, or upper back pain Shortness of breath Severe headache Throbbing or rushing sound in the ears Nosebleed Extreme drowsiness, confusion, or fainting Dizziness or dizziness with spinning sensation (vertigo) Weakness in an arm or leg or on one side of the face Trouble speaking or seeing [id number] The [employer]. [address] [place] [address]. All rights reserved. This information is not intended as a substitute for professional medical care. Always follow your healthcare professional's instructions. 05/25/2021 12:16:22 Fall Prevention Fall Prevention Falls often occur due to slipping, tripping or losing your balance. Millions of people fall every year and injure themselves. Here are ways to reduce your risk of falling again. Think about your fall, was there anything that caused your fall that can be fixed, removed, or replaced? Make your home safe by keeping walkways clear of objects you may trip over, such as electric cords. Use non-slip pads under rugs. Don't use area rugs or small throw rugs. Use non-slip mats in bathtubs and showers. Install handrails and lights on staircases. The handrails should be on both sides of the stairs. Don't walk in poorly lit areas. Don't stand on chairs or wobbly ladders. Use caution when reaching overhead or looking upward. This position can cause a loss of balance. Be sure your shoes fit properly, have non-slip bottoms and are in good condition. Wear shoes both inside and out. Don't go barefoot or wear slippers. Be cautious when going up and down stairs, curbs, and when walking on uneven sidewalks. If your balance is poor, consider using a cane or walker. If your fall was related to alcohol use, stop or limit alcohol intake. If your fall was related to use of sleeping medicines, talk to your healthcare provider about this. You may need to reduce your dosage at bedtime if you awaken during the night to go to the bathroom. To reduce the need for nighttime bathroom trips: oDon't drink fluids for several hours before going to bed oEmpty your bladder before going to bed oMen can keep a urinal at the bedside Stay as active as you can. Balance, flexibility, strength, and endurance all come from exercise. They all play a role in preventing falls. Ask your healthcare provider which types of activity are right for you. Get your vision checked on a regular basis. If you have pets, know where they are before you stand up or walk so you don't trip over them. Use night lights. Go over all your medicines with a pharmacist or other healthcare provider to see if any of them could make you more likely to fall. [id number] The [employer]. [address] [place] [address]. All rights reserved. This information is not intended as a substitute for professional medical care. Always follow your healthcare professional's instructions. Follow Up Care 05/25/2021 10:50:56 With:HUI DOCKERY Address: [address] [place] [id number] When:2-4 days With:Go to emergency room if symptoms worsen Address:Unknown When:2-4 days [facility] Evaluation + Plan note No data available for this section [facility] Evaluation + Plan note Future Appointments [facility] Evaluation + Plan note Future Appointments Appointment Date:12/17/2022 01:00:00 PM Scheduled Provider: Location:[facility] Appointment Type:PT Outpatient Evaluation [facility] Hospital Discharge instructions No data available for this section [facility] Progress note No data available for this section [facility] A Summary Purpose Family History No Family History Records FoundNo Family History Records Found Advance Directives No Advanced Directives Records FoundNo Advanced Directives Records Found Additional Source Comments INFORMATION SOURCE (unrecogn ized section and content) DATE CREATED AUTHOR 05/26/2019 [facility] DATE CREATED AUTHOR AUTHOR'S ORGANIZ ATION 12/24/2023 [facility] ([place]) Source Comments (unrecognize d section and content) In the event this informatio n is protected by the Federal Confidentiality of Alcohol and Drug Abuse Patient Records regulations: The Federal rules restrict any use of the information to criminally investigate or prosecute any alcohol or drug abuse patient.[facility] the event this information is protected by the Federal Confidentiality of Alcohol and Drug Abuse Patient Records regulations: The Federal rules restrict any use of the information to criminally investigate or prosecute any alcohol or drug abuse patient.[facility] the event this information is protected by the Federal Confidentiality of Alcohol and Drug Abuse Patient Records regulations: The Federal rules restrict any use of the information to criminally investigate or prosecute any alcohol or drug abuse patient.[facility] the event this information is protected by the Federal Confidentiality of Alcohol and Drug Abuse Patient Records regulations: The Federal rules restrict any use of the information to criminally investigate or prosecute any alcohol or drug abuse patient.[facility] the event this information is protected by the Federal Confidentiality of Alcohol and Drug Abuse Patient Records regulations: The Federal rules restrict any use of the information to criminally investigate or prosecute any alcohol or drug abuse patient.[facility] Hospital[facility] the event this information is protected by the Federal Confidentiality of Alcohol and Drug Abuse Patient Records regulations: The Federal rules restrict any use of the information to criminally investigate or prosecute any alcohol or drug abuse patient.[facility] Care Team (unrecognized sect ion and content) Care Team Personnel Name: Jin Gordon Clerkathrin Young PT Position: P3 Scheduling - [employer]edder Advanced Member Role: Other Name: HUI DOCKERY DO Member Role: Primary Care Physician Address: Address: [address] [place] [phone]- Care Team Related Persons Name: LIN SAUCEDO Address: [address] [place] [address] [place] Patient Care team informatio n (unrecognized section and content) Care Team Personnel Name: Jin Gordon Clerk Hannah PT Position: P3 Scheduling - Embedder Advanced Member Role: Other Name: HUI DOCKERY DO Member Role: Primary Care Physician Address: Address: [address] [place] [address] Care Team Related Persons Name: LIN SAUCEDO Address: [address] Care Team Personnel Name: Jin Gordon Clerk Hannah PT Position: P3 Scheduling - Embedder Advanced Member Role: Other Name: HUI DOCKERY DO Member Role: Primary Care Physician Address: Address: [address] [place] [address] Care Team Related Persons Name: LEWIS LIN MerrittAlexx Address: [address] Care Team Personnel Name: Jin Gordon Clerkathrin Snowa PT Position: P3 Scheduling - Embedder Advanced Member Role: Other Name: HUI DOCKERY DO Member Role: Primary Care Physician Address: Address: [address] [place] [address] Care Team Related Persons Name: LIN SAUCEDO Address: [address] FOR RECORDS PERTAINING TO PATIENTS WHO ARE OR HAVE BEEN ENROLLED IN A CHEMICAL DEPENDENCY/SUBSTANCEABUSE PROGRAM, SOME INFORMATION MAY BE OMITTED. This clinical summary was aggregated from multiple sources. Caution should be exercised in using it in the provision of clinical care. This summary normalizes information from multiple sources, and as a consequence, information in this document may materially change the coding, format and clinical context of patient data. In addition, data may be omitted in some cases. CLINICAL DECISIONS SHOULD BE BASED ON THE PRIMARY CLINICAL RECORDS. [employer] provides no warranty or guarantee of the accuracy or completeness of information in this document.
== END | disposition home or self-care (01) ==
LOC: OPBI 07:06
PROVIDERS: PCP Family Medicine; Referring Provider Family Medicine; Visit Provider Family Medicine
DX: Z12.31 Encounter for screening mammogram for malignant neoplasm of breast (principal)
CPT/HCPCS: 77063; 77067

== ENCOUNTER → 2025-01-30 | Outpatient (CLI) | payer MEDICARE, SELFPAY ==
[2025-01-30 15:49] LABS: Anion Gap 12 (5-15); BUN 13 mg/dL (4-19); BUN/Creat Ratio 19.3 RATIO (10-20); Calcium,Total 9.7 mg/dL (7.6-11.0); Carbon Dioxide 25.4 mmol/L (21.0-32.0); Chloride 100 mmol/L (98-108); Glucose 95 mg/dL (70-99); Potassium 4.5 mmol/L (3.3-5.1)
== END | disposition home or self-care (01) ==
LOC: BFHLAB 11:55
PROVIDERS: PCP Family Medicine; Visit Provider Family Medicine
DX: E87.1 Hypo-osmolality and hyponatremia (principal)
CPT/HCPCS: 36415; 80048

== ENCOUNTER → 2025-05-09 | Outpatient (CLI) | payer MEDICARE, SELFPAY ==
--- NOTE | 2025-05-09 11:58 | BI_ITS ---
EXAM: SCRN MAMM (CAD)W/LADONNA BILAT DATE: 05/09/2025 CLINICAL HISTORY: F, Age 84 y/o , SCREENING No family history. TECHNIQUE: Procedure Code: [id number] Modality: MG Procedure: SCRN MAMM (CAD)W/LADONNA BILAT COMPARISON: Prior exam(s) dated May 07, 2024.. FINDINGS: TISSUE DENSITY: There are scattered areas of fibroglandular density. Bilateral Breast Mammographic Findings: No significant masses, calcifications or other abnormalities are identified. No suspicious masses, areas of developing architectural distortion, or suspicious calcifications. There has been no significant interval change. BI/SCRN MAMM (CAD)W/LADONNA BILAT IMPRESSION: Stable bilateral screening mammogram. OVERALL FINAL ASSESSMENT BI-RADS 1: NEGATIVE. RECOMMENDATION: Routine annual follow-up in 1 Year Additional Recommendation none A letter with findings and recommendations will be mailed to the patient. Reading Location: [place] [address]
== END | disposition home or self-care (01) ==
PROVIDERS: PCP Family Medicine; Referring Provider Family Medicine; Visit Provider Family Medicine
DX: Z12.31 Encounter for screening mammogram for malignant neoplasm of breast (principal)
CPT/HCPCS: 77063; 77067